=== PATIENT | male | born 1930 | race Caucasian/White ===

== ENCOUNTER → 2017-02-09 | Outpatient (CLI) | payer BC ==
[~2017-02-09] MED LIST: AMLO-110 PO; ASPI81TA28 PO; CARV25TA PO; CHOL100010 PO; DVN/160 PO; ISOS120T5 PO; LPT/40 PO; LSX40 PO; MCRK20 PO; NTRGSL/4 UT
[2017-02-09 09:37] LABS: HEMATOCRIT 41.2 % (42-52); MEAN CORPUSCULAR HEMOGLOBIN 32.3 pg (25-34); MEAN CORPUSCULAR HGB CONC 34.7 g/dl (32-36); MEAN PLATELET VOLUME 9.8 fL (7.4-10.4); PLATELET COUNT 202 K/uL (130-400); RED BLOOD COUNT 4.43 M/uL (4.7-6.1); WHITE BLOOD COUNT 6.97 K/uL (4.8-10.8)
[2017-02-09 09:57] LABS: ALT/SGPT 25 U/L (12-78); BLOOD UREA NITROGEN 21 mg/dl (7-18); BUN/CREATININE RATIO 19.2 (10-20); CARBON DIOXIDE 27 mmol/L (21-32); CHLORIDE 107 mmol/L (98-107); GLUCOSE 88 mg/dl (70-99); POTASSIUM 3.8 mmol/L (3.5-5.1); SODIUM 143 mmol/L (136-145)
[2017-02-09 10:00] LABS: ALKALINE PHOSPHATASE 103 U/L (45-117); AST/SGOT 18 U/L (15-37); CHOLESTEROL 111 mg/dl (0-200); CHOLESTEROL/HDL RATIO 2.8; HDL CHOLESTEROL 39 mg/dl; LDL CHOLESTEROL CALCULATED 47 mg/dl; TRIGLYCERIDES 127 mg/dl (0-150); VERY LOW DENSITY LIPOPROT CALC 25 mg/dl
[2017-02-09 10:05] LABS: CALCIUM 9.2 mg/dl (8.5-10.1)
== END | disposition home or self-care (01) ==
LOC: C.LAB1850 08:27
PROVIDERS: ATTEND Internal Medicine Cardiovascular Disease
DX: I25.5 Ischemic cardiomyopathy (principal); E78.5 Hyperlipidemia, unspecified; I10 Essential (primary) hypertension; I65.29 Occlusion and stenosis of unspecified carotid artery; I50.22 Chronic systolic (congestive) heart failure; I25.10 Atherosclerotic heart disease of native coronary artery without angina pectoris; R55 Syncope and collapse; R42 Dizziness and giddiness

== ENCOUNTER 2017-05-10 17:03 | Emergency (ER) | payer BC ==
[~2017-05-10] VITALS: Ht 162.6 cm; Wt 87.7 kg
[2017-05-10 17:08] VITALS: Ht 162.6 cm; Wt 87.7 kg
[2017-05-10] MEDS ORDERED: SODIUM CHLORIDE 0.9% 1000ML 1,000 ML IV STA (17:57)
--- NOTE | 2017-05-10 18:19 | DIAGNOSTIC IMAGING REPORT ---
PA CHEST WITH LEFT-SIDED RIB SERIES CLINICAL HISTORY: Left-sided chest wall pain. FINDINGS: A PA chest radiograph with 5 additional views may left-sided rib series is compared to study dated 02/15/2015. The patient is status post midline sternotomy. A 3-lead cardiac AICD partially obscures the left mid chest. The heart is enlarged and there is atherosclerotic calcification of the thoracic aorta. The pulmonary vasculature is noncongested. There is bibasilar atelectasis. The lungs and pleural spaces are otherwise clear. No pneumothorax is seen. The skeletal structures are osteopenic. There is no radiographic evidence of left-sided rib fracture on the rib series. The remainder of the bony thorax is grossly intact. IMPRESSION: 1. Cardiomegaly and AICD. There is no radiographic evidence of congestive failure. 2. No airspace consolidation or large pleural effusion is identified. 3. There is no radiographic evidence of left-sided rib fracture as clinically queried. Electronically signed by: Lazaro Miller M.D. 05/10/2017 6:18 PM Dictated Date/Time: 05/10/2017 6:11 PM
[2017-05-10 18:22] LABS: BASO % 0.6 %; BASO ABS # 0.05 K/uL (0-0.2); COMPLETE YES; EOS % 7.1 %; HEMATOCRIT 40.5 % (42-52); IG% 0.6 %; LYMPH % 23.6 %; LYMPH ABS # 2.09 K/uL (1.2-3.4); MEAN CELL VOLUME 93.5 fL (80-100); MEAN CORPUSCULAR HEMOGLOBIN 32.3 pg (25-34); MEAN CORPUSCULAR HGB CONC 34.6 g/dl (32-36); MEAN PLATELET VOLUME 9.5 fL (7.4-10.4); MONO % 7.1 %; PLATELET COUNT 196 K/uL (130-400); RED BLOOD COUNT 4.33 M/uL (4.7-6.1); WHITE BLOOD COUNT 8.84 K/uL (4.8-10.8)
[2017-05-10 18:39] LABS: ALT/SGPT 24 U/L (12-78); BLOOD UREA NITROGEN 29 mg/dl (7-18); BUN/CREATININE RATIO 17.2 (10-20); CALCIUM 8.8 mg/dl (8.5-10.1); CARBON DIOXIDE 26 mmol/L (21-32); CHLORIDE 109 mmol/L (98-107); GLUCOSE 130 mg/dl (70-99); POTASSIUM 3.8 mmol/L (3.5-5.1); SODIUM 143 mmol/L (136-145)
[2017-05-10 18:42] LABS: ALKALINE PHOSPHATASE 95 U/L (45-117); AST/SGOT 19 U/L (15-37)
[2017-05-10 19:51] LABS: URINE APPEARANCE CLEAR (CLEAR); URINE BILIRUBIN NEG (NEG); URINE COLOR YELLOW; URINE NITRITE NEG (NEG); URINE SPECIFIC GRAVITY 1.023 (1.000-1.030); UROBILINOGEN NEG (NEG)
[2017-05-10 19:52] LABS: MANUAL MICROSCOPIC REQUIRED? NO; REVIEW REQ? NO
[2017-05-10 20:12] VITALS: BP 148/59; PULSE 60; O2SAT 95
--- NOTE | 2017-05-10 20:33 | EMERGENCY ROOM VISIT NOTE ---
ED Visit Note First contact with patient: 17:14 I seen and examined the patient at bedside and discussed the case with the treating physician engineering assistant. I discussed with the patient his evaluation here , need for follow-up regarding his renal function. Examine the patient and he had equal chest rise and fall, no obvious bruising, no crepitus, no step-off, and only slight chest wall tenderness. Doubt any disruption or dislodgment of patient's pacer and/or wires. This was the patient's primary concern. No evidence of pneumothorax, twiddler's syndrome, pacer appears to be working on telemetry, doubt ACS, dissection, pulmonary contusion, cardiac contusion, traumatic dissection.
--- NOTE | 2017-05-11 22:22 | EMERGENCY ROOM VISIT NOTE ---
ED Visit Note First contact with patient: 17:14 Chief Complaint: Left sided rib pain. History of Present Illness: Mr. Gambino is an 87-year-old white male who ambulates into the ED accompanied by his complaining of left anterior rib pain. Historically patient reports he has coronary artery disease and is status post pacer/defibrillator insertion. Patient reports last few days he's been feeling well. Today he reports he was out working on his tractor. When he finished he reports he was feeling tired and fatigued. As he was coming down off the tractor he slipped and fell onto his left elbow. He reports this caused the left elbow to be driven into the left side of his chest in the area of his pacer/defibrillator. Since that time he reports he has been having pain in the area of his pacer/defibrillator. Patient denies lightheadedness or dizziness before the fall, striking his head at the time of the fall, signs of head injury since the fall including headache , dizziness, lightheadedness, abnormal neurological symptoms, nausea/vomiting. Patient currently places his discomfort over the left anterior ribs posterior to his pacer/defibrillator. He describes his pain as a sharp discomfort. He rates his discomfort 8/10. The pain is nonradiating. The pain worsens with palpation. He has not identified any alleviating factors related to the pain. He has not taken any medications for pain prior to arrival at the hospital. He denies any associated skin eruptions, skin color changes, fevers, chills, sweats , cough, wheezing, shortness of breath, palpitations, abdominal pain, nausea/ vomiting, back pain. Review of Systems: As noted above in history of present illness. All body systems were reviewed and found to be negative as noted above. Past Medical History: As previously noted and asthma, hypertension, congestive heart failure, dyslipidemia, syncope. Current Medications: Medications Dose Route/Sig Max Daily Dose Days Date Category Dose Instructions Vitamin D (Cholecalciferol) 1,000 Inter.unit Tab 2,000 Inter.unit PO QAM 12/24/15 Reported Diovan (Valsartan) 160 Mg Tab 160 Mg PO BID 12/24/15 Reported Lipitor (Atorvastatin) 40 Mg Tab 40 Mg PO HS 12/24/15 Reported Aspirin Ec (Aspirin) 81 Mg Tab 81 Mg PO QAM 02/15/15 Reported Furosemide 40 Mg Tab 80 Mg PO QAM 09/11/14 Reported Imdur Ext Rel (Isosorbide Mononitrate) 120 Mg Tab 120 Mg PO BID 02/25/13 Reported Nitrostat (Nitroglycerin) 0.4 Mg Tab 0.4 Mg UT UD PRN 12/12/[address] ONE TABLET UNDER THE TONGUE EVERY 5 MINUTES FOR UP TO 3 DOSES IF NEEDED FOR CHEST PAIN. Coreg (Carvedilol) 25 Mg Tab 25 Mg PO BID 12/12/12 Reported Klor-Con (Potassium Chloride) 20 Meq Tabcr 20 Meq PO QAM 12/12/12 Reported Allergies to Medications: ESHA inhibitor's. Social History: Patient is currently retired; he feels safe in his home environment; he denies tobacco use. Physical Examination: Vital Signs: Date Time Temp Pulse Resp B/P (MAP) Pulse Ox O2 Delivery O2 Flow Rate FiO2 05/10/17 20:12 60 19 148/59 95 05/10/17 19:03 60 17 130/64 94 Room Air 05/10/17 18:19 60 16 134/60 95 Room Air 05/10/17 17:08 36.4 60 20 158/58 95 Room Air GENERAL: 87-year-old male in mild distress due to pain, nontoxic-appearing, afebrile and hemodynamically stable. NEUROLOGICAL: Awake, alert and oriented to person, place and time. Answering questions appropriately and following commands. Normal gait. Good hand eye coordination. No focal motor sensory deficits. SKIN: Warm, dry and pink. No soft tissue eruptions or trauma noted. HEENT: Atraumatic and normocephalic. PERRLA. Sclera white and conjunctiva pink. No drainage from naris. Oral cavity moist and pink. Pharynx is nonerythematous or edematous. Speech normal. No lymphadenopathy. Trachea midline. No jugular venous distention. No carotid bruits. BACK: No tenderness over the bony cervical, thoracic and lumbar spine. No tenderness throughout the paraspinous muscles. Full range of motion of the cervical spine. No CVA tenderness. THORAX: Lungs sounds are clear to auscultation and equal bilaterally with symmetrical chest wall. No wheezing, rales or rhonchi. Mild tenderness over the right anterior chest wall in the area of his pacer/defibrillator. Was not able to elicit any bony deformity, bony crepitus, swelling, ecchymosis or subcutaneous air. HEART: Regular rate and rhythm. No gallops, rubs or murmurs are appreciated. ABDOMEN: Flat, soft and nontender. Positive bowel sounds in all quadrants. No guarding, rigidity or organomegaly. EXTREMITIES: Moves all extremities well on command and with purpose. All distal neurovascular statuses are intact and equal bilaterally. No calf tenderness or cords. ED Course: Patient is assessed as noted above. Patient's medication list was reviewed. Laboratory Testing: Test 05/10/17 18:05 05/10/17 19:40 Range/Units White Blood Count 8.84 4.8-10.8 K/uL Red Blood Count 4.33 4.7-6.1 M/uL Hemoglobin 14.0 14.0-18.0 g/dL Hematocrit 40.5 42-52 % Mean Corpuscular Volume 93.5 80-100 fL Mean Corpuscular Hemoglobin 32.3 25-34 pg Mean Corpuscular Hemoglobin Concent 34.6 32-36 g/dl Platelet Count 196 130-400 K/uL Mean Platelet Volume 9.5 7.4-10.4 fL Neutrophils (%) (Auto) 61.0 % Lymphocytes (%) (Auto) 23.6 % Monocytes (%) (Auto) 7.1 % Eosinophils (%) (Auto) 7.1 % Basophils (%) (Auto) 0.6 % Neutrophils # (Auto) 5.39 1.4-6.5 K/uL Lymphocytes # (Auto) 2.09 1.2-3.4 K/uL Monocytes # (Auto) 0.63 0.11-0.59 K/uL Eosinophils # (Auto) 0.63 0-0.5 K/uL Basophils # (Auto) 0.05 0-0.2 K/uL RDW Standard Deviation 46.4 36.4-46.3 fL RDW Coefficient of Variation 13.5 11.5-14.5 % Immature Granulocyte % (Auto) 0.6 % Immature Granulocyte # (Auto) 0.05 0.00-0.02 K/uL Sodium Level 143 136-145 mmol/L Potassium Level 3.8 3.5-5.1 mmol/L Chloride Level 109 98-107 mmol/L Carbon Dioxide Level 26 21-32 mmol/L Anion Gap 8.0 3-11 mmol/L Blood Urea Nitrogen 29 7-18 mg/dl Creatinine 1.70 0.60-1.40 mg/dl Est Creatinine Clear Calc Drug Dose 30.6 ml/min Estimated GFR () 41.1 Estimated GFR (Non- 35.5 BUN/Creatinine Ratio 17.2 10-20 Random Glucose 130 70-99 mg/dl Calcium Level 8.8 8.5-10.1 mg/dl Total Bilirubin 0.7 0.2-1 mg/dl Direct Bilirubin 0.1 0-0.2 mg/dl Aspartate Amino Transf (AST/SGOT) 19 15-37 U/L Alanine Aminotransferase (ALT/SGPT) 24 12-78 U/L Alkaline Phosphatase 95 45-117 U/L Troponin I < 0.015 0-0.045 ng/ml Total Protein 6.5 6.4-8.2 gm/dl Albumin 3.4 3.4-5.0 gm/dl Lipase 120 73-393 U/L Urine Color YELLOW Urine Appearance CLEAR CLEAR Urine pH 5.0 4.5-7.5 Urine Specific [place] 1.023 1.000-1.030 Urine Protein NEG NEG Urine Glucose (UA) NEG NEG Urine Ketones NEG NEG Urine Occult Blood NEG NEG Urine Nitrite NEG NEG Urine Bilirubin NEG NEG Urine Urobilinogen NEG NEG Urine Leukocyte Esterase NEG NEG Chest X-Ray: Was reviewed by myself and read by the radiologist and shows cardiomegaly and AICD. No evidence of congestive failure. No airspace consolidation or large pleural effusions. No radiographic evidence of rib fracture. EKG: Was read by myself and reviewed with Dr. Camara; shows an atrial sensed ventricular paced rhythm at a rate of 64 bpm. No ischemic changes. This was compared to previous and no acute changes were noted. Patient was hydrated with normal saline; he was offered pain medications and refused. Patient was reassessed multiple times during his stay in the emergency department. Patient's case was reviewed with Dr. Camara; she is apparently assessed the patient we agreed on diagnostic approach, treatment, disposition and plan. Patient and are educated about today's findings and instructed on history of a plan; they verbalized understanding and agreement with this plan. Clinical Impression: Anterior left sided rib pain. Elevated BUN and creatinine. Decision-Making: Initially my differential diagnosis I considered rib fracture, pneumothorax, acute coronary syndrome, pulmonary contusion, displacement of pacer/defibrillator, arrhythmia and other causes. Disposition: Patient discharged home in stable condition; prior to departure he was reassessed and subjectively reported he was feeling better and rated his discomfort 5/10. Plan: Patient was encouraged to continue current medications as prescribed. Patient was encouraged to rest for next 2 or 3 days and do no strenuous activities. Patient was encouraged use 650 mg of acetaminophen every 6 hours as needed for pain. Patient was encouraged use ice over areas of pain 5 times a day for 20 minutes. Patient was encouraged to contact his family physician in the morning and request follow-up care and treatment and recheck of his BUN and creatinine levels. Patient was encouraged return ED for worsening pain, shortness of breath, fevers or any new/concerning symptoms.
== END 2017-05-10 20:14 | disposition home or self-care (01) ==
LOC: C.EDB 17:04 → C.EDD 20:14
DX: R07.81 Pleurodynia (principal); R79.89 Other specified abnormal findings of blood chemistry; I25.10 Atherosclerotic heart disease of native coronary artery without angina pectoris; Z95.810 Presence of automatic (implantable) cardiac defibrillator; I10 Essential (primary) hypertension; E78.5 Hyperlipidemia, unspecified; J45.909 Unspecified asthma, uncomplicated; Z79.82 Long term (current) use of aspirin; Z79.899 Other long term (current) drug therapy

== ENCOUNTER → 2017-06-28 | Outpatient (CLI) | payer BC ==
[~2017-06-28] MED LIST changes: -AMLO-110 PO
[2017-06-28 13:51] LABS: BLOOD UREA NITROGEN 17 mg/dl (7-18); BUN/CREATININE RATIO 14.3 (10-20); CALCIUM 9.1 mg/dl (8.5-10.1); CARBON DIOXIDE 28 mmol/L (21-32); CHLORIDE 109 mmol/L (98-107); GLUCOSE 117 mg/dl (70-99); POTASSIUM 3.4 mmol/L (3.5-5.1); SODIUM 143 mmol/L (136-145)
== END | disposition home or self-care (01) ==
LOC: C.LAB1850 11:57
PROVIDERS: ATTEND Internal Medicine
DX: N18.3 Chronic kidney disease, stage 3 (moderate) (principal)

== ENCOUNTER → 2017-07-01 | Outpatient (CLI) | payer BC | END | disposition home or self-care (01) | LOC: C.LAB1850 14:20 | PROVIDERS: ATTEND Internal Medicine Cardiovascular Disease | DX: I20.9 Angina pectoris, unspecified (principal); I50.22 Chronic systolic (congestive) heart failure; I25.10 Atherosclerotic heart disease of native coronary artery without angina pectoris ==

== ENCOUNTER → 2017-07-23 | Outpatient (CLI) | payer BC ==
[2017-07-23 15:28] LABS: HEMATOCRIT 40.6 % (42-52); MEAN CELL VOLUME 93.5 fL (80-100); MEAN CORPUSCULAR HEMOGLOBIN 32.5 pg (25-34); MEAN CORPUSCULAR HGB CONC 34.7 g/dl (32-36); PLATELET COUNT 230 K/uL (130-400); RED BLOOD COUNT 4.34 M/uL (4.7-6.1)
[2017-07-23 16:02] LABS: ALT/SGPT 24 U/L (12-78); AST/SGOT 18 U/L (15-37); BLOOD UREA NITROGEN 24 mg/dl (7-18); BUN/CREATININE RATIO 19.7 (10-20); CALCIUM 8.7 mg/dl (8.5-10.1); CARBON DIOXIDE 26 mmol/L (21-32); CHLORIDE 108 mmol/L (98-107); POTASSIUM 3.8 mmol/L (3.5-5.1); SODIUM 142 mmol/L (136-145)
[2017-07-23 16:13] LABS: GLUCOSE 92 mg/dl (70-99)
== END | disposition home or self-care (01) ==
LOC: C.LAB1850 14:07
PROVIDERS: ATTEND Internal Medicine Cardiovascular Disease
DX: I25.5 Ischemic cardiomyopathy (principal); E78.5 Hyperlipidemia, unspecified; I11.0 Hypertensive heart disease with heart failure; I50.22 Chronic systolic (congestive) heart failure; I25.10 Atherosclerotic heart disease of native coronary artery without angina pectoris; R55 Syncope and collapse

== ENCOUNTER → 2017-08-23 | Outpatient (CLI) | payer BC ==
[2017-08-23 12:22] LABS: BLOOD UREA NITROGEN 28 mg/dl (7-18); CALCIUM 8.8 mg/dl (8.5-10.1); CARBON DIOXIDE 24 mmol/L (21-32); CHLORIDE 108 mmol/L (98-107); CREATININE 1.39 mg/dl (0.60-1.40); GLUCOSE 97 mg/dl (70-99); POTASSIUM 4.4 mmol/L (3.5-5.1); SODIUM 139 mmol/L (136-145)
== END | disposition home or self-care (01) ==
LOC: C.LAB1850 10:30
PROVIDERS: ATTEND Internal Medicine Cardiovascular Disease
DX: N18.3 Chronic kidney disease, stage 3 (moderate) (principal)

== ENCOUNTER → 2017-09-06 | Outpatient (CLI) | payer BC ==
[2017-09-06 16:49] LABS: HEMATOCRIT 38.4 % (42-52); MEAN CELL VOLUME 94.3 fL (80-100); MEAN CORPUSCULAR HEMOGLOBIN 32.4 pg (25-34); MEAN CORPUSCULAR HGB CONC 34.4 g/dl (32-36); MEAN PLATELET VOLUME 10.3 fL (7.4-10.4); PLATELET COUNT 237 K/uL (130-400); RED BLOOD COUNT 4.07 M/uL (4.7-6.1); WHITE BLOOD COUNT 9.35 K/uL (4.8-10.8)
== END | disposition home or self-care (01) ==
LOC: C.LAB1850 15:02
PROVIDERS: ATTEND Internal Medicine Cardiovascular Disease
DX: I11.0 Hypertensive heart disease with heart failure (principal); I25.119 Atherosclerotic heart disease of native coronary artery with unspecified angina pectoris; I50.22 Chronic systolic (congestive) heart failure

== ENCOUNTER 2017-10-14 08:37 | Emergency (ER) | payer BC ==
[~2017-10-14] VITALS: Ht 162.6 cm; Wt 89.4 kg
[~2017-10-14 08:37] MED LIST changes: -ASPI81TA28 PO; -CARV25TA PO; -DVN/160 PO; -ISOS120T5 PO; -LPT/40 PO; -NTRGSL/4 UT
[2017-10-14 08:55] VITALS: TEMP 36.5; O2SAT 95; Ht 162.6 cm; Wt 89.4 kg
--- NOTE | 2017-10-14 10:01 | EMERGENCY ROOM VISIT NOTE ---
History Report prepared by Timmy: Greg Ureña Under the Supervision of: Dr. Jose L Mcdonald M.D. First contact with patient: 09:54 Chief Complaint: CARDIAC ASSESSMENT Stated Complaint: HEART DEVICE WENT OFF 3 TIMES LAST EVENING Nursing Triage Summary: pt reports last night pacer/defib went off 4-5 x. said he was up all night jerking. pt denies any pain or sob. has fallen a couple times between last night and today. pt has hx of bypass surgery x2 , stent in bilat legs, pacer /defib, poor ejection fraction, pt reports last night when fell he hit top of head into door has neck and head pain. no loc History of Present Illness The patient is an 87 year old male with a pacemaker who presents to the Emergency Room with complaints of episodes of defibrillator/pacemaker shocking that started last night. He states that his defibrillator went off 4 or 5 times overnight. Per the patient's , the patient was "jerking" all night long. The patient says that his defibrillator had went off once before these recent episodes. He denies any pain, including abdominal pain. He also denies any shortness of breath or urinary symptoms. His last bowel movement was a few days ago. The patient notes that he had bypass surgery in 2003, and then a stent placement, followed with the pacemaker implantation. He adds that he takes fluid medication. Source of History: patient, spouse/significant other Onset: Last night Position: other (heart ) Symptom Intensity: 4 or 5 times Quality: other (defibrillator shocking) Timing: other (episodes) Associated Symptoms: No SOB, No abdominal pain, No urinary symptoms Note: Associated symptoms: Patient "jerking" all night. Denies any pain. Review of Systems All systems have been listed, reviewed, and are negative other than those previously mentioned. Please see Additional Medical History Sheet. Past Medical & Surgical Medical Problems: (1) Asthma (2) Asthma, Unspecified (3) Benign hypertension (4) Congestive Heart Failure Nos (5) Coronary Atherosclerosis Of [place] Coronary Vessel (6) Heart disease (7) Hyperlipidemia Nec/Nos (8) Syncope Surgical Problems: (1) Implantation of cardiac pacemaker Family History Cancer Diabetes mellitus FH: heart disease Social History Smoking Status: Never Smoker Alcohol Use: none Marital Status: Housing Status: lives with significant other Occupation Status: retired Current/Historical Medications Scheduled Aspirin (Aspirin Ec), 81 MG PO QAM Atorvastatin (Lipitor), 40 MG PO HS Carvedilol (Coreg), 25 MG PO BID Cholecalciferol (Vitamin D3), 2,000 UNITS PO DAILY Furosemide (Furosemide), 80 MG PO QAM Isosorbide Mononitrate (Imdur Ext Rel), 120 MG PO BID Potassium Chloride (Klor-Con M20), 20 MEQ PO DAILY Valsartan (Diovan), 160 MG PO BID Scheduled PRN Nitroglycerin (Nitrostat), 0.4 MG UT UD PRN for Chest Pain Allergies Coded Allergies: ESHA Inhibitors (Verified Adverse Reaction, Mild, COUGH, 05/10/17) Physical Exam Vital Signs Date Time Temp Pulse Resp B/P (MAP) Pulse Ox O2 Delivery O2 Flow Rate FiO2 10/14/17 12:45 163/83 10/14/17 12:42 60 18 10/14/17 12:36 60 10/14/17 12:30 165/83 10/14/17 12:15 158/77 10/14/17 12:12 60 17 95 10/14/17 12:07 60 20 94 10/14/17 12:01 144/119 10/14/17 11:45 161/81 10/14/17 11:37 60 17 95 10/14/17 11:30 160/75 10/14/17 11:15 152/74 10/14/17 11:07 60 17 95 10/14/17 11:00 156/71 10/14/17 10:45 136/74 10/14/17 10:37 60 17 95 10/14/17 10:30 151/88 10/14/17 10:15 165/75 10/14/17 10:08 60 20 146/72 97 Room Air 10/14/17 10:07 60 17 94 10/14/17 10:00 146/72 10/14/17 09:45 119/76 10/14/17 09:37 60 16 10/14/17 09:32 130/57 10/14/17 09:16 116/61 10/14/17 09:07 60 15 10/14/17 09:00 120/55 10/14/17 08:55 36.5 60 20 142/64 95 Room Air 10/14/17 08:55 95 Room Air 10/14/17 08:55 95 Room Air 10/14/17 08:52 60 10/14/17 08:51 142/64 Physical Exam GENERAL: Patient awake, alert, oriented x 3. Patient follows commands. Patient does not appear toxic. Patient is adequately hydrated and well- nourished. SKIN: There is a midline sternotomy scar. No erythema, pallor, cyanosis or rash. HEENT: Normal head, pupils equal, reactive to light and accommodation. LUNGS: Clear to auscultation. No wheezes, no rales, no rhonchi. HEART: No murmurs. No gallops. No rubs ABDOMEN: No masses, no rebound, no hepatomegaly or splenomegaly. EXTREMITIES: No signs of trauma. No pedal or pretibial edema. No calf or thigh tenderness. NEUROLOGIC: Cranial nerves II-XII within normal limits. No gross motor sensory function deficits. Medical Decision & Procedures ER Provider Diagnostic Interpretation: X ray results are stated below per my interpretation and the radiologist's interpretation. CHEST ONE VIEW PORTABLE CLINICAL HISTORY: defib fired cardiac arrhythmia COMPARISON STUDY: 02/15/2015 FINDINGS: Stable cardiomegaly. Prior median sternotomy. Implantable cardiac pacemaker/defibrillator with leads in good position. Diaphragms are smooth. Lungs are clear. IMPRESSION: Chronic and postoperative change. No acute process. Cardiac pacemaker/defibrillator leads appear intact. The above report was generated using voice recognition software. It may contain grammatical, syntax or spelling errors. Electronically signed by: Clovis Dorsey M.D. 10/14/2017 10:25 AM Dictated Date/Time: 10/14/2017 10:24 AM Laboratory Results 10/14/17 09:05 10/14/17 09:05 Test 10/14/17 09:05 10/14/17 10:20 Red Blood Count 3.93 M/uL (4.7-6.1) Mean Corpuscular Volume 94.7 fL (80-100) Mean Corpuscular Hemoglobin 33.1 pg (25-34) Mean Corpuscular Hemoglobin Concent 34.9 g/dl (32-36) RDW Standard Deviation 48.1 fL (36.4-46.3) RDW Coefficient of Variation 13.8 % (11.5-14.5) Mean Platelet Volume 9.9 fL (7.4-10.4) Prothrombin Time 11.8 SECONDS (9.0-12.0) Prothromb Time International Ratio 1.1 (0.9-1.1) Activated Partial Thromboplast Time 28.7 SECONDS (21.0-31.0) Partial Thromboplastin Ratio 1.1 Anion Gap 5.0 mmol/L (3-11) Est Creatinine Clear Calc Drug Dose 33.2 ml/min Estimated GFR () 44.9 Estimated GFR (Non- 38.8 BUN/Creatinine Ratio 13.1 (10-20) Calcium Level 8.5 mg/dl (8.5-10.1) Total Bilirubin 0.7 mg/dl (0.2-1) Aspartate Amino Transf (AST/SGOT) 12 U/L (15-37) Alanine Aminotransferase (ALT/SGPT) 18 U/L (12-78) Alkaline Phosphatase 104 U/L (45-117) Troponin I < 0.015 ng/ml (0-0.045) Total Protein 6.3 gm/dl (6.4-8.2) Albumin 3.0 gm/dl (3.4-5.0) Globulin 3.3 gm/dl (2.5-4.0) Albumin/Globulin Ratio 0.9 (0.9-2) Thyroid Stimulating Hormone (TSH) 1.080 uIu/ml (0.300-4.500) Urine Color DK YELLOW Urine Appearance CLEAR (CLEAR) Urine pH 6.5 (4.5-7.5) Urine Specific [place] 1.022 (1.000-1.030) Urine Protein NEG (NEG) Urine Glucose (UA) NEG (NEG) Urine Ketones NEG (NEG) Urine Occult Blood NEG (NEG) Urine Nitrite NEG (NEG) Urine Bilirubin NEG (NEG) Urine Urobilinogen NEG (NEG) Urine Leukocyte Esterase TRACE (NEG) Urine WBC (Auto) 1-5 /hpf (0-5) Urine RBC (Auto) 0-4 /hpf (0-4) Urine Hyaline Casts (Auto) 0 /lpf (0-5) Urine Epithelial Cells (Auto) 5-10 /lpf (0-5) Urine Bacteria (Auto) NEG (NEG) Laboratory results as stated above per my review. ECG Indication: palpitations Rate (beats per minute): 61 Rhythm: other (biventricular paced rhythm) Findings: no acute ischemic change, no ectopy ED Course 0955: Past medical records reviewed. The patient was evaluated in room B12B. A complete history and physical examination was performed. 1320: Upon reevaluation, the patient appeared to be resting comfortably. I discussed today's findings with him. He verbalized agreement of the treatment plan. He was discharged home. Medical Decision I considered multiple diagnoses including multiple firing of defibrillator, arrhythmia, metabolic disorder, thyroid disorder. Multiple labs, EKG and imaging were obtained. Please see above. The patient's troponin is not elevated. He remains in a paced rhythm. He has no acute findings. Chest x-ray is unremarkable. The patient's defibrillator was interrogated and there were no shocks administered. I discussed this with the patient and his . The patient has had some ambulatory dysfunction for about 1 month. He fell again today. 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 No medication changes are necessary at this time. Medication Reconcilliation Current Medication List: was personally reviewed by me Blood Pressure Screening Patient's blood pressure: Elevated blood pressure Blood pressure disposition: Referred to PCP Impression Primary Impression: Encounter for interrogation of cardiac defibrillator Scribe Attestation The scribe's documentation has been prepared under my direction and personally reviewed by me in its entirety. I confirm that the note above accurately reflects all work, treatment, procedures, and medical decision making performed by me. Departure Information Dispostion Home / Self-Care Referrals Sukhi Burrell M.D. (PCP) Patient Instructions My [facility] Additional Instructions Continue all of your current medications as prescribed. Follow-up with your family physician and plumbing and heating contractor.
[2017-10-14 10:26] LABS: HEMATOCRIT 37.2 % (42-52); MEAN CELL VOLUME 94.7 fL (80-100); MEAN CORPUSCULAR HEMOGLOBIN 33.1 pg (25-34); MEAN CORPUSCULAR HGB CONC 34.9 g/dl (32-36); MEAN PLATELET VOLUME 9.9 fL (7.4-10.4); PLATELET COUNT 248 K/uL (130-400); RED CELL DISTRIBUTION WIDTH CV 13.8 % (11.5-14.5); RED CELL DISTRIBUTION WIDTH SD 48.1 fL (36.4-46.3); WHITE BLOOD COUNT 7.02 K/uL (4.8-10.8)
--- NOTE | 2017-10-14 10:27 | DIAGNOSTIC IMAGING REPORT ---
CHEST ONE VIEW PORTABLE CLINICAL HISTORY: defib fired cardiac arrhythmia COMPARISON STUDY: 02/15/2015 FINDINGS: Stable cardiomegaly. Prior median sternotomy. Implantable cardiac pacemaker/defibrillator with leads in good position. Diaphragms are smooth. Lungs are clear. IMPRESSION: Chronic and postoperative change. No acute process. Cardiac pacemaker/defibrillator leads appear intact. The above report was generated using voice recognition software. It may contain grammatical, syntax or spelling errors. Electronically signed by: Clovis Dorsey M.D. 10/14/2017 10:25 AM Dictated Date/Time: 10/14/2017 10:24 AM
[2017-10-14 10:34] LABS: INR 1.1 (0.9-1.1); PTT PATIENT 28.7 SECONDS (21.0-31.0)
[2017-10-14 10:37] LABS: ALT/SGPT 18 U/L (12-78); AST/SGOT 12 U/L (15-37); BLOOD UREA NITROGEN 21 mg/dl (7-18); CALCIUM 8.5 mg/dl (8.5-10.1); CARBON DIOXIDE 26 mmol/L (21-32); CREATININE 1.58 mg/dl (0.60-1.40); GLUCOSE 102 mg/dl (70-99); POTASSIUM 3.7 mmol/L (3.5-5.1); SODIUM 138 mmol/L (136-145)
[2017-10-14 10:48] LABS: ALKALINE PHOSPHATASE 104 U/L (45-117); TOTAL PROTEIN 6.3 gm/dl (6.4-8.2)
[2017-10-14 12:12] VITALS: O2SAT 95
[2017-10-14 12:42] VITALS: PULSE 60
[2017-10-14 12:45] VITALS: BP 163/83
[2018-04-10] MEDS ORDERED: PANT40TA PO (14:42)
[2018-05-10] MEDS ORDERED: ISOS120T5 PO (08:59)
[2018-05-10] MEDS ORDERED: MCRK20 PO (09:00)
[2018-05-10] MEDS ORDERED: CHOL20007 PO (09:00)
[2018-05-10] MEDS ORDERED: DVN/160 PO (10:50)
[2018-05-10] MEDS ORDERED: LPT/40 PO (10:50)
[2018-05-26] MEDS ORDERED: POTA-639 PO (15:10)
[2018-05-26] MEDS ORDERED: FERR1TAB62 PO (15:18)
== END 2017-10-14 13:15 | disposition home or self-care (01) ==
LOC: C.EDB 08:38
DX: Z45.02 Encounter for adjustment and management of automatic implantable cardiac defibrillator (principal); I10 Essential (primary) hypertension; E78.5 Hyperlipidemia, unspecified; I25.10 Atherosclerotic heart disease of native coronary artery without angina pectoris; I51.9 Heart disease, unspecified; J45.909 Unspecified asthma, uncomplicated; Z95.0 Presence of cardiac pacemaker; Z79.82 Long term (current) use of aspirin; Z79.899 Other long term (current) drug therapy; Z88.8 Allergy status to other drugs, medicaments and biological substances; Z80.9 Family history of malignant neoplasm, unspecified; Z83.3 Family history of diabetes mellitus; Z82.49 Family history of ischemic heart disease and other diseases of the circulatory system

== ENCOUNTER → 2018-05-05 | Outpatient (CLI) | payer OTHER ==
[~2018-05-05] MED LIST changes: +ASPI81TA28 PO; +CARV25TA PO; -CHOL100010 PO; +CHOL20007 PO; +DVN/160 PO; +ISOS120T5 PO; +LPT/40 PO; +LSX80 PO; +LVQ750 PO; +NTRGSL/4 UT; +PANT40TA PO; +PANT40TA2 PO; +TRAM-10 PO
[2018-05-05 13:31] LABS: HEMATOCRIT 34.2 % (42-52); HEMOGLOBIN 10.8 g/dL (14.0-18.0); MEAN CELL VOLUME 97.2 fL (80-100); MEAN CORPUSCULAR HEMOGLOBIN 30.7 pg (25-34); MEAN CORPUSCULAR HGB CONC 31.6 g/dl (32-36); MEAN PLATELET VOLUME 9.7 fL (7.4-10.4); PLATELET COUNT 270 K/uL (130-400); RED CELL DISTRIBUTION WIDTH SD 49.5 fL (36.4-46.3); WHITE BLOOD COUNT 7.48 K/uL (4.8-10.8)
[2018-05-05 14:17] LABS: ALT/SGPT 16 U/L (12-78); AST/SGOT 12 U/L (15-37); BLOOD UREA NITROGEN 18 mg/dl (7-18); CALCIUM 8.1 mg/dl (8.5-10.1); CARBON DIOXIDE 26 mmol/L (21-32); CHOLESTEROL 96 mg/dl (0-200); CREATININE 1.27 mg/dl (0.60-1.40); GLUCOSE 86 mg/dl (70-99); LDL CHOLESTEROL CALCULATED 38 mg/dl; POTASSIUM 3.8 mmol/L (3.5-5.1); SODIUM 141 mmol/L (136-145)
== END | disposition home or self-care (01) ==
LOC: C.LABPBG 07:36
PROVIDERS: ATTEND Internal Medicine Cardiovascular Disease
DX: I50.22 Chronic systolic (congestive) heart failure (principal); I25.5 Ischemic cardiomyopathy; K92.2 Gastrointestinal hemorrhage, unspecified; Z95.810 Presence of automatic (implantable) cardiac defibrillator; E78.5 Hyperlipidemia, unspecified; I11.0 Hypertensive heart disease with heart failure; I20.9 Angina pectoris, unspecified; R55 Syncope and collapse

== ENCOUNTER 2018-05-10 17:22 | Inpatient (IN) | payer OTHER ==
[~2018-05-10] VITALS: Ht 165.1 cm; Wt 86.7 kg
[~2018-05-10 17:22] MED LIST changes: -ASPI81TA28 PO; -CARV25TA PO; -LSX80 PO; -LVQ750 PO; -NTRGSL/4 UT; -PANT40TA2 PO; -TRAM-10 PO
[2018-05-10] MEDS ORDERED: ALBUT/IPRATROP 3MG/0.5MG NEB 3 ML VIAL INH STA (17:29)
[2018-05-10] MEDS ORDERED: OPTIRAY 320 IV PRN (17:30)
[2018-05-10] MEDS ORDERED: ASPIRIN 81 MG CHEW PO STA (17:30)
[2018-05-10 17:33] VITALS: PULSE 93; O2SAT 91
[2018-05-10 17:41] LABS: BASO % 0.5 %; BASO ABS # 0.04 K/uL (0-0.2); EOS % 1.9 %; EOS ABS # 0.14 K/uL (0-0.5); HEMATOCRIT 35.4 % (42-52); HEMOGLOBIN 11.4 g/dL (14.0-18.0); IG# 0.02 K/uL (0.00-0.02); LYMPH % 19.9 %; LYMPH ABS # 1.46 K/uL (1.2-3.4); MEAN CELL VOLUME 96.2 fL (80-100); MEAN CORPUSCULAR HGB CONC 32.2 g/dl (32-36); MEAN PLATELET VOLUME 9.7 fL (7.4-10.4); MONO % 3.1 %; MONO ABS # 0.23 K/uL (0.11-0.59); NEUT % 74.3 %; NEUT ABS # 5.45 K/uL (1.4-6.5); PLATELET COUNT 339 K/uL (130-400); RED CELL DISTRIBUTION WIDTH CV 13.7 % (11.5-14.5); RED CELL DISTRIBUTION WIDTH SD 47.6 fL (36.4-46.3); WHITE BLOOD COUNT 7.34 K/uL (4.8-10.8)
--- NOTE | 2018-05-10 17:42 | DIAGNOSTIC IMAGING REPORT ---
CHEST ONE VIEW PORTABLE HISTORY: 88 years-old Male Chest Pain acute atypical chest pain with respiratory distress COMPARISON: Chest radiograph 04/08/2018 TECHNIQUE: Portable AP view of the chest FINDINGS: Cardiac silhouette is enlarged, unchanged. Left subclavian pacer/ICD redemonstrated with leads appearing to be intact. Prior median sternotomy. Calcification of the aorta. No pneumothorax, pleural effusion or overt pulmonary edema. There is mild pulmonary vascular congestion. Subsegmental left basilar opacities suggest atelectasis. Ill-defined alveolar opacities about the left upper lobe. Degenerative changes of the shoulders and spine. IMPRESSION: 1. Cardiomegaly with mild pulmonary vascular congestion. 2. Ill-defined opacities of the left upper lobe suggest pneumonia or atelectasis. The above report was generated using voice recognition software. It may contain grammatical, syntax or spelling errors. Electronically signed by: Randy Moreau M.D. 05/10/2018 5:40 PM Dictated Date/Time: 05/10/2018 5:38 PM
--- NOTE | 2018-05-10 17:54 | DIAGNOSTIC IMAGING REPORT ---
(CHEST FOR PE) ANGIO WITH CT DOSE: 455.84 mGy.cm HISTORY: Chest pain dyspnea TECHNIQUE: Multiaxial CT images of the chest were performed following the intravenous administration of contrast to evaluate the pulmonary arteries. Maximal intensity projection images were also obtained. A dose lowering technique was utilized adhering to the principles of ALARA. COMPARISON STUDY: None. FINDINGS: Moderate atelectatic change thoracic aorta. Pulmonary vasculature enhances appropriately. No filling defects. There is diffuse left hemithoracic infiltrate. This involves left upper as well as left lower lobe regions. Right lung is grossly clear. Moderate cardiomegaly. IMPRESSION: 1. Study is negative for pulmonary embolus. 2. Diffuse parenchymal infiltrate left hemithorax. The above report was generated using voice recognition software. It may contain grammatical, syntax or spelling errors. Electronically signed by: Clovis Dorsey M.D. 05/10/2018 5:52 PM Dictated Date/Time: 05/10/2018 5:49 PM
[2018-05-10] MEDS ORDERED: PIPERACILLIN/TAZOBACTAM 4.5 GM/100ML D5W IV STA (18:03)
[2018-05-10] MEDS ORDERED: LEVAQUIN 750MG / 150ML D5W IV STA (18:03)
[2018-05-10 18:16] LABS: ALBUMIN 3.2 gm/dl (3.4-5.0); ALKALINE PHOSPHATASE 124 U/L (45-117); ALT/SGPT 19 U/L (12-78); AST/SGOT 17 U/L (15-37); BLOOD UREA NITROGEN 19 mg/dl (7-18); CALCIUM 8.6 mg/dl (8.5-10.1); CARBON DIOXIDE 24 mmol/L (21-32); CKMB 2.1 ng/ml (0.5-3.6); CREATININE 1.52 mg/dl (0.60-1.40); GLUCOSE 157 mg/dl (70-99); LIPASE 70 U/L (73-393); TOTAL PROTEIN 6.8 gm/dl (6.4-8.2)
[2018-05-10 18:17] LABS: POTASSIUM 4.4 mmol/L (3.5-5.1); SODIUM 139 mmol/L (136-145)
[2018-05-10] MEDS ORDERED: PANT40TA2 PO (18:33)
[2018-05-10] MEDS ORDERED: LSX80 PO (18:33)
[2018-05-10] MEDS ORDERED: TRAM-10 PO (18:34)
--- NOTE | 2018-05-10 18:42 | History and Physical ---
History & Physical Date & Time of Service: May 10, 2018 at 18:29 Chief Complaint: Resp. Distress Primary Care Physician: Sukhi Burrell M.D. History of Present Illness Source: patient, family, hospital records 88y/oM with hx of CAD, PAD, systolic CHF EF 55% (2012), CKD III, HTN, HLD presents with chills, shaking and cough since this afternoon. Cough is dry. A/w sob. Denies feeling feverish, chest pain, abdominal pain, n/v, constipation, diarrhea, NAPIER/dizziness. Yesterday L ankle and foot swollen and has history of PAD with stents. L leg swelling has improved but still there. Did not take any medications at home aside from regular medication regimen No known sick contacts. Never smoked and denies any hx of asthma ED interval hx: received Zosyn, levoquin, aspirin and duoneb x 1 with improvement in sob Past Medical/Surgical History Medical Problems: (1) Asthma (2) Asthma, Unspecified (3) Benign hypertension (4) Chest pain (5) Congestive Heart Failure Nos (6) Coronary Atherosclerosis Of [place] Coronary Vessel (7) Encounter for interrogation of cardiac defibrillator (8) Heart disease (9) Hyperlipidemia Nec/Nos (10) Left sided chest pain (11) Lightheadedness (12) PAD (peripheral artery disease) (13) Pain of left lower extremity (14) Peripheral vascular disease (15) Rib pain on left side (16) Syncope (17) Upper GI bleed Surgical Problems: (1) Implantation of cardiac pacemaker Social History Smoking Status: Never Smoker Drug Use: none Marital Status: Housing status: lives with family Occupational Status: retired Immunizations History of Influenza Vaccine: Yes Influenza Vaccine Date: Jul 13, 2012 History of Tetanus Vaccine?: Yes Tetanus Immunization Date: Jul 13, 2002 History of Pneumococcal: Yes Pneumococcal Date: Jul 13, 2005 History of Hepatitis B Vaccine: No Allergies Coded Allergies: ESHA Inhibitors (Verified Adverse Reaction, Mild, COUGH, 05/09/18) Home Medications Scheduled Aspirin (Aspirin Ec), 81 MG PO QAM Atorvastatin (Lipitor), 40 MG PO HS Carvedilol (Coreg), 25 MG PO BID Cholecalciferol (Vitamin D3), 2,000 INTER.UNIT PO DAILY Furosemide (Furosemide), 80 MG PO QAM Isosorbide Mononitrate (Imdur Ext Rel), 120 MG PO BID Pantoprazole (Pantoprazole Sodium), 40 MG PO BID Potassium Chloride (Klor-Con M20), 20 MEQ PO DAILY Valsartan (Diovan), 160 MG PO BID Scheduled PRN Nitroglycerin (Nitrostat), 0.4 MG UT UD PRN for Chest Pain Tramadol (Ultram), 50 MG PO Q12 PRN for Pain Review of Systems Constitutional: + fever, + chills Respiratory: + cough, + shortness of breath, No sputum Cardiovascular: No chest pain, No palpitations Abdomen: No pain, No nausea, No vomiting, No diarrhea, No constipation Genitourinary - Male: No dysuria Physical Exam Vital Signs Date Time Temp Pulse Resp B/P (MAP) Pulse Ox O2 Delivery O2 Flow Rate FiO2 05/10/18 18:11 86 22 151/54 98 Oxymask 10.0 05/10/18 18:01 38.2 91 20 151/54 94 Nebulizer 05/10/18 17:55 70 20 172/65 90 Nebulizer 10.0 05/10/18 17:54 91 22 172/68 94 Oxymask 10.0 05/10/18 17:39 93 Oxymask 10.0 05/10/18 17:35 89 22 168/64 93 Oxymask 10.0 05/10/18 17:33 93 91 05/10/18 17:31 93 05/10/18 17:25 87 Room Air General Appearance: no apparent distress, + pertinent finding (pt wearing oxymask; able to provide hx and speak in full sentences) Head: normocephalic, atraumatic Eyes: normal inspection ENT: hearing grossly normal Respiratory/Chest: + decreased breath sounds (diffusely), + crackles (RLL and RML regions), + rhonchi (occasional), + pertinent finding (coughing repeatedly when asked to take a deep breath) Cardiovascular: regular rate, rhythm, no murmur Abdomen/GI: normal bowel sounds, non tender, soft Extremities/Musculoskelatal: no calf tenderness, + pertinent finding (trace RLE edema and 1+ LLE edema) Neurologic/Psych: alert, oriented x 3 Skin: normal color, warm/dry Diagnostics Laboratory Results Results Past 24 Hours Test 05/10/18 17:20 7/24/18 17:31 05/10/18 18:07 Range/Units White Blood Count 7.34 4.8-10.8 K/uL Red Blood Count 3.68 4.7-6.1 M/uL Hemoglobin 11.4 14.0-18.0 g/dL Hematocrit 35.4 42-52 % Mean Corpuscular Volume 96.2 80-100 fL Mean Corpuscular Hemoglobin 31.0 25-34 pg Mean Corpuscular Hemoglobin Concent 32.2 32-36 g/dl Platelet Count 339 130-400 K/uL Mean Platelet Volume 9.7 7.4-10.4 fL Neutrophils (%) (Auto) 74.3 % Lymphocytes (%) (Auto) 19.9 % Monocytes (%) (Auto) 3.1 % Eosinophils (%) (Auto) 1.9 % Basophils (%) (Auto) 0.5 % Neutrophils # (Auto) 5.45 1.4-6.5 K/uL Lymphocytes # (Auto) 1.46 1.2-3.4 K/uL Monocytes # (Auto) 0.23 0.11-0.59 K/uL Eosinophils # (Auto) 0.14 0-0.5 K/uL Basophils # (Auto) 0.04 0-0.2 K/uL RDW Standard Deviation 47.6 36.4-46.3 fL RDW Coefficient of Variation 13.7 11.5-14.5 % Immature Granulocyte % (Auto) 0.3 % Immature Granulocyte # (Auto) 0.02 0.00-0.02 K/uL Sodium Level 139 136-145 mmol/L Potassium Level 4.4 3.5-5.1 mmol/L Chloride Level 106 98-107 mmol/L Carbon Dioxide Level 24 21-32 mmol/L Anion Gap 9.0 3-11 mmol/L Blood Urea Nitrogen 19 7-18 mg/dl Creatinine 1.52 0.60-1.40 mg/dl Est Creatinine Clear Calc Drug Dose 32.4 ml/min Estimated GFR () 46.7 Estimated GFR (Non- 40.3 BUN/Creatinine Ratio 12.6 10-20 Random Glucose 157 70-99 mg/dl Calcium Level 8.6 8.5-10.1 mg/dl Total Bilirubin 0.7 0.2-1 mg/dl Direct Bilirubin 0.2 0-0.2 mg/dl Aspartate Amino Transf (AST/SGOT) 17 15-37 U/L Alanine Aminotransferase (ALT/SGPT) 19 12-78 U/L Alkaline Phosphatase 124 45-117 U/L Total Creatine Kinase 63 39-308 U/L Creatine Kinase MB 2.1 0.5-3.6 ng/ml Creatine Kinase MB Ratio 3.3 0-3.0 Troponin I < 0.015 0-0.045 ng/ml Pro-B-Type Natriuretic Peptide 1679 0-1800 pg/ml Total Protein 6.8 6.4-8.2 gm/dl Albumin 3.2 3.4-5.0 gm/dl Lipase 70 73-393 U/L Microbiology Results 05/10/18 Blood Culture, Ordered Pending 05/10/18 Blood Culture, Ordered Pending Diagnostic Radiology CHEST ONE VIEW PORTABLE HISTORY: 88 years-old Male Chest Pain acute atypical chest pain with respiratory distress COMPARISON: Chest radiograph 04/08/2018 TECHNIQUE: Portable AP view of the chest FINDINGS: Cardiac silhouette is enlarged, unchanged. Left subclavian pacer/ICD redemonstrated with leads appearing to be intact. Prior median sternotomy. Calcification of the aorta. No pneumothorax, pleural effusion or overt pulmonary edema. There is mild pulmonary vascular congestion. Subsegmental left basilar opacities suggest atelectasis. Ill-defined alveolar opacities about the left upper lobe. Degenerative changes of the shoulders and spine. IMPRESSION: 1. Cardiomegaly with mild pulmonary vascular congestion. 2. Ill-defined opacities of the left upper lobe suggest pneumonia or atelectasis. (CHEST FOR PE) ANGIO WITH CT DOSE: 455.84 mGy.cm HISTORY: Chest pain dyspnea TECHNIQUE: Multiaxial CT images of the chest were performed following the intravenous administration of contrast to evaluate the pulmonary arteries. Maximal intensity projection images were also obtained. A dose lowering technique was utilized adhering to the principles of ALARA. COMPARISON STUDY: None. FINDINGS: Moderate atelectatic change thoracic aorta. Pulmonary vasculature enhances appropriately. No filling defects. There is diffuse left hemithoracic infiltrate. This involves left upper as well as left lower lobe regions. Right lung is grossly clear. Moderate cardiomegaly. IMPRESSION: 1. Study is negative for pulmonary embolus. 2. Diffuse parenchymal infiltrate left hemithorax. EKG 89 - ventricular paced Impression Assessment and Plan 88 yoM with hx of CAD, PAD, systolic CHF EF 55% (2013), CKD III, HTN, HLD. Presents with chills and cough that started this afternoon. Found to be significantly hypoxic with O2 sat of 60% requiring 10L via oxymask and febrile to 38.2. CAD. Admitted for L sided pneumonia. Pneumonia - febrile to 38.2 - No WBC elevation - lactate 2.6 - CT chest PE concerning for diffuse L hemithorax infiltrates - CXR - CHAPIN opacity and mild pulmonary vascular congestion - O2 per protocol - Levaquin 750mg IV daily - Received Zosyn and Levaquin x 1 in the ED - Duoneb QID and PRN Systolic CHF - ECHO 2012 - EF 55% - stable - BNP 1679 - continue home Lasix, Valsartan and Coreg CAD/HTN/HLD - no chest pain - Continue home aspirin, Imdur, Coreg, valsartan and lipitor CKD III - Cr mildly elevated to 1.5 from baseline (Cr 1.3) - Follow BMP Hx of recent GI bleed - continue protonix DVT prop: Heparin SQ Code: Full Dispo: pending clinical improvement Resuscitation Status VTE Prophylaxis Will order VTE Prophylaxis: Yes Reviewed: Pt Seen/Exam by Me History Pt is feeling much improved. He is no longer SOB at rest, but is still on a facemask and has not been OOB. Pt had no issues until this AM when he had a fever an nausea. He had a coughing spell and then suddenly became SOB. Had been tolerating PO without issue until today. Denies chest pain. Agree with HPI/ROS as noted by resident General Appearance: WD/WN, no apparent distress Eye Exam: bilateral eye normal inspection, bilateral eye other (sclera nml) Respiratory: no respiratory distress, decreased breath sounds, crackles Cardiovascular: normal peripheral pulses, regular rate, rhythm Gastrointestinal: non tender, soft Extremities: non-tender, pedal edema (1+ pitting) Neurologic/Psychiatric: alert, normal mood/affect, oriented x 3 Skin Characteristics: normal color, warm/dry Assessment/Plan Agree with plan as outlined above Hypoxia, improving PNA noted on CXR Levaquin wean O2 as able Conservative IVF given CHF hx of LE swelling ? hx of asthma? Nebs scheduled for now
[2018-05-10] MEDS ORDERED: TRAMADOL HCL 50 MG TAB PO PRN (19:00)
[2018-05-10] MEDS ORDERED: MoRPHine SULFATE 2 MG/ML CARP IV PRN (19:00)
[2018-05-10] MEDS ORDERED: ALUMINUM/MAGNESIUM/SIMETH (MAALOX MAX) 30 ML UDC PO PRN (19:00)
[2018-05-10] MEDS ORDERED: MAGNESIUM HYDROXIDE SUSP 30 ML UDC PO PRN (19:00)
[2018-05-10] MEDS ORDERED: LEVOFLOXACIN / D5W 750 MG in PREMIXED IN D5W 150 ML IV SCH (19:00)
[2018-05-10] MEDS ORDERED: POLYETHYLENE (MIRALAX) 17 GM PACK PO PRN (19:00)
[2018-05-10] MEDS ORDERED: NITROGLYCERIN 0.4 MG SL PER TAB CHARGE SL PRN (19:00)
[2018-05-10] MEDS ORDERED: ONDANSETRON INJ 2 MG/ML 2 ML VIAL IV PRN (19:00)
[2018-05-10] MEDS ORDERED: ACETAMINOPHEN 325 MG TAB PO PRN (19:00)
[2018-05-10] MEDS ORDERED: CARV25TA PO (19:01)
[2018-05-10] MEDS ORDERED: NTRGSL/4 UT (19:02)
[2018-05-10] MEDS ORDERED: SODIUM CHLORIDE 0.9% 1000ML 1,000 ML IV STA (19:27)
[2018-05-10] MEDS ORDERED: MoRPHine SULFATE 4 MG/ML 1 ML CARP\\VIAL IV PRN (19:30)
[2018-05-10] MEDS ORDERED: ALBUT/IPRATROP 3MG/0.5MG NEB 3 ML VIAL INH SCH (20:00)
[2018-05-10 20:04] VITALS: BP 122/48; PULSE 71; TEMP 37; O2SAT 99; Ht 165.1 cm; Wt 86.7 kg
[2018-05-10] MEDS: VALSARTAN 80 MG TAB PO SCH (21:00)
[2018-05-10] MEDS: CARVEDILOL 25 MG TAB PO SCH (21:00)
[2018-05-10] MEDS: ISOSORBIDE MONONITRATE 60 MG TABCR PO SCH (21:00)
[2018-05-10] MEDS ORDERED: ASPI81TA28 PO (21:01)
--- NOTE | 2018-05-10 22:02 | EMERGENCY ROOM VISIT NOTE ---
History Report prepared by Scribe: Liliana White Under the Supervision of: Dr. Saad Alvarenga D.O. First contact with patient: 17:20 Stated Complaint: RESP. DISTRESS History of Present Illness The patient is a 88 year old male who presents to the Emergency Room with complaints of persistent shortness of breath. He was brought to the ED via EMS. When EMS arrived at his home, he was having "severe" shortness of breath that he developed around 1430 today. The patient was found to be hypoxic in the 70's and cyanotic. They placed him on CPAP and he started vomiting profusely, but his last O2 sat was 97. The patient states he has experienced persistent left leg pain for the past 10 days. He came to the ED last night for his leg pain and was sent home. He states around 1000 this morning, he briefly experienced chest pain, like someone hit him with a hammer. The patient has had 3 previous DE's and 5 previous bypass surgeries. He denies any recent syncopal events. He does take daily Lasix and denies any recently missed doses. Pt denies headache, change in vision, fevers, diarrhea, pain with urination, and melena. Source of History: patient, EMS Onset: 1400 today Position: chest Timing: other (persistent) Modifying Factors (Relieving): other (CPAP) Associated Symptoms: + chest pain, + nausea, + vomiting, No fevers, No headache, No melena, No diarrhea, No urinary symptoms Review of Systems See HPI for pertinent positives & negatives. A total of 10 systems reviewed and were otherwise negative. Past Medical & Surgical Medical Problems: (1) Asthma (2) Asthma, Unspecified (3) Benign hypertension (4) Congestive Heart Failure Nos (5) Coronary Atherosclerosis Of [place] Coronary Vessel (6) Heart disease (7) Hyperlipidemia Nec/Nos (8) Pneumonia (9) Syncope (10) Upper GI bleed Surgical Problems: (1) Implantation of cardiac pacemaker Family History Cancer Diabetes mellitus FH: heart disease Social History Smoking Status: Never Smoker Alcohol Use: none Drug Use: none Marital Status: Housing Status: lives with significant other Occupation Status: retired Current/Historical Medications Scheduled Aspirin (Aspirin Ec), 81 MG PO QAM Atorvastatin (Lipitor), 40 MG PO HS Carvedilol (Coreg), 25 MG PO BID Cholecalciferol (Vitamin D3), 2,000 INTER.UNIT PO DAILY Furosemide (Furosemide), 80 MG PO QAM Isosorbide Mononitrate (Imdur Ext Rel), 120 MG PO BID Pantoprazole (Pantoprazole Sodium), 40 MG PO BID Potassium Chloride (Klor-Con M20), 20 MEQ PO DAILY Valsartan (Diovan), 160 MG PO BID Scheduled PRN Nitroglycerin (Nitrostat), 0.4 MG UT UD PRN for Chest Pain Tramadol (Ultram), 50 MG PO Q12 PRN for Pain Allergies Coded Allergies: ESHA Inhibitors (Verified Adverse Reaction, Mild, COUGH, 05/09/18) Physical Exam Vital Signs Date Time Temp Pulse Resp B/P (MAP) Pulse Ox O2 Delivery O2 Flow Rate FiO2 05/10/18 19:08 69 22 120/41 05/10/18 18:33 76 20 97/71 98 Room Air 05/10/18 18:11 86 22 151/54 98 Oxymask 10.0 05/10/18 18:01 38.2 91 20 151/54 94 Nebulizer 05/10/18 17:55 70 20 172/65 90 Nebulizer 10.0 05/10/18 17:54 91 22 172/68 94 Oxymask 10.0 05/10/18 17:39 93 Oxymask 10.0 05/10/18 17:35 89 22 168/64 93 Oxymask 10.0 05/10/18 17:33 93 91 05/10/18 17:31 93 05/10/18 17:25 87 Room Air Physical Exam GENERAL: Sitting up in bed, alert, ill-appearing, in moderate distress, on CPAP EYE EXAM: normal conjunctiva. OROPHARYNX: no exudate, no erythema, lips, buccal mucosa, and tongue normal and mucous membranes are moist NECK: supple, no nuchal rigidity, no adenopathy, non-tender LUNGS: Rhonchi in bilateral lungs, diminished breath sounds on the left. Normal chest wall mechanics HEART: no murmurs, S1 normal and S2 normal ABDOMEN: abdomen soft, non-tender, normo-active bowel sounds, no masses, no rebound or guarding. BACK: Back is symmetrical on inspection and there is no deformity, no midline tenderness, no CVA tenderness. SKIN: no rashes and no bruising UPPER EXTREMITIES: upper extremities are grossly normal. LOWER EXTREMITIES: No pitting edema. Calves are equal bilaterally. NEURO EXAM: Normal sensorium, cranial nerves II-XII grossly intact, normal speech, no gross weakness of arms, no gross weakness of legs. Gross sensation intact. Medical Decision & Procedures ER Provider Diagnostic Interpretation: Radiology results as stated below per my review and the radiologist's interpretation: CHEST ONE VIEW PORTABLE HISTORY: 88 years-old Male Chest Pain acute atypical chest pain with respiratory distress COMPARISON: Chest radiograph 04/08/2018 TECHNIQUE: Portable AP view of the chest FINDINGS: Cardiac silhouette is enlarged, unchanged. Left subclavian pacer/ICD redemonstrated with leads appearing to be intact. Prior median sternotomy. Calcification of the aorta. No pneumothorax, pleural effusion or overt pulmonary edema. There is mild pulmonary vascular congestion. Subsegmental left basilar opacities suggest atelectasis. Ill-defined alveolar opacities about the left upper lobe. Degenerative changes of the shoulders and spine. IMPRESSION: 1. Cardiomegaly with mild pulmonary vascular congestion. 2. Ill-defined opacities of the left upper lobe suggest pneumonia or atelectasis. The above report was generated using voice recognition software. It may contain grammatical, syntax or spelling errors. Electronically signed by: Randy Moreau M.D. 05/10/2018 5:40 PM (CHEST FOR PE) ANGIO WITH CT DOSE: 455.84 mGy.cm HISTORY: Chest pain dyspnea TECHNIQUE: Multiaxial CT images of the chest were performed following the intravenous administration of contrast to evaluate the pulmonary arteries. Maximal intensity projection images were also obtained. A dose lowering technique was utilized adhering to the principles of ALARA. COMPARISON STUDY: None. FINDINGS: Moderate atelectatic change thoracic aorta. Pulmonary vasculature enhances appropriately. No filling defects. There is diffuse left hemithoracic infiltrate. This involves left upper as well as left lower lobe regions. Right lung is grossly clear. Moderate cardiomegaly. IMPRESSION: 1. Study is negative for pulmonary embolus. 2. Diffuse parenchymal infiltrate left hemithorax. The above report was generated using voice recognition software. It may contain grammatical, syntax or spelling errors. Electronically signed by: Clovis Dorsey M.D. 05/10/2018 5:52 PM Laboratory Results 05/10/18 17:20 Red Blood Count 3.68, Mean Corpuscular Volume 96.2, Mean Corpuscular Hemoglobin 31.0, Mean Corpuscular Hemoglobin Concent 32.2, Mean Platelet Volume 9.7, Neutrophils (%) (Auto) 74.3, Lymphocytes (%) (Auto) 19.9, Monocytes (%) (Auto) 3.1, Eosinophils (%) (Auto) 1.9, Basophils (%) (Auto) 0.5, Neutrophils # (Auto) 5.45, Lymphocytes # (Auto) 1.46, Monocytes # (Auto) 0.23, Eosinophils # (Auto) 0.14, Basophils # (Auto) 0.04 05/10/18 17:20 Test 05/10/18 17:20 05/10/18 18:43 White Blood Count 7.34 K/uL (4.8-10.8) Red Blood Count 3.68 M/uL (4.7-6.1) Hemoglobin 11.4 g/dL (14.0-18.0) Hematocrit 35.4 % (42-52) Mean Corpuscular Volume 96.2 fL (80-100) Mean Corpuscular Hemoglobin 31.0 pg (25-34) Mean Corpuscular Hemoglobin Concent 32.2 g/dl (32-36) Platelet Count 339 K/uL (130-400) Mean Platelet Volume 9.7 fL (7.4-10.4) Neutrophils (%) (Auto) 74.3 % Lymphocytes (%) (Auto) 19.9 % Monocytes (%) (Auto) 3.1 % Eosinophils (%) (Auto) 1.9 % Basophils (%) (Auto) 0.5 % Neutrophils # (Auto) 5.45 K/uL (1.4-6.5) Lymphocytes # (Auto) 1.46 K/uL (1.2-3.4) Monocytes # (Auto) 0.23 K/uL (0.11-0.59) Eosinophils # (Auto) 0.14 K/uL (0-0.5) Basophils # (Auto) 0.04 K/uL (0-0.2) RDW Standard Deviation 47.6 fL (36.4-46.3) RDW Coefficient of Variation 13.7 % (11.5-14.5) Immature Granulocyte % (Auto) 0.3 % Immature Granulocyte # (Auto) 0.02 K/uL (0.00-0.02) Anion Gap 9.0 mmol/L (3-11) Est Creatinine Clear Calc Drug Dose 32.4 ml/min Estimated GFR () 46.7 Estimated GFR (Non- 40.3 BUN/Creatinine Ratio 12.6 (10-20) Calcium Level 8.6 mg/dl (8.5-10.1) Total Bilirubin 0.7 mg/dl (0.2-1) Direct Bilirubin 0.2 mg/dl (0-0.2) Aspartate Amino Transf (AST/SGOT) 17 U/L (15-37) Alanine Aminotransferase (ALT/SGPT) 19 U/L (12-78) Alkaline Phosphatase 124 U/L (45-117) Total Creatine Kinase 63 U/L (39-308) Creatine Kinase MB 2.1 ng/ml (0.5-3.6) Creatine Kinase MB Ratio 3.3 (0-3.0) Troponin I < 0.015 ng/ml (0-0.045) Pro-B-Type Natriuretic Peptide 1679 pg/ml (0-1800) Total Protein 6.8 gm/dl (6.4-8.2) Albumin 3.2 gm/dl (3.4-5.0) Lipase 70 U/L (73-393) Venous Blood pH 7.34 (7.36-7.41) Venous Blood Partial Pressure CO2 43 mmHg (38.0-50.0) Venous Blood Partial Pressure O2 39 mmHg Venous Blood HCO3 23 mmol/L Venous Blood Oxygen Saturation 68.3 % Venous Blood Base Excess -2.9 mEq/L Lactic Acid Level 2.6 mmol/L (0.4-2.0) Laboratory results per my review. Medications Administered Medications (Trade) Dose Ordered Sig/Michel Route Start Time Stop Time Status Last Admin Dose Admin Albuterol/ Ipratropium (Duoneb) 3 ml NOW STAT INH 05/10/18 17:29 05/10/18 17:30 DC 05/10/18 17:57 3 ML Aspirin (Aspirin Chew) 324 mg NOW STAT PO 05/10/18 17:30 05/10/18 17:31 DC 05/10/18 17:57 324 MG Piperacillin Sod/ Tazobactam Sod (Zosyn Iv) 4.5 gm NOW STAT IV 05/10/18 18:03 05/10/18 18:05 DC 05/10/18 18:26 4.5 GM Levofloxacin (Levaquin / D5W) 750 mg NOW STAT IV 05/10/18 18:03 05/10/18 18:05 DC 05/10/18 18:26 750 MG ECG Per My Interpretation Indication: SOB/dyspnea Rate (beats per minute): 89 Rhythm: other (Atrial sensed, ventricularly paced) Findings: RBBB, other (normal axis) ED Course ED COURSE: Vital signs were reviewed and showed the patient is hypoxic, hypotensive and tachycardic. The patients medical record was reviewed The above diagnostic studies were performed and reviewed. ED treatments and interventions as stated above. 1723: The patient was evaluated in room A1. A complete history and physical examination was performed. 1729: DuoNeb 3 ml INH. 1730: Aspirin 324 mg PO. 1803: Levaquin 750 mg IV, Zosyn 4.5 gm IV. 1814: I discussed the patients case with Dr. Woodward, [facility] Hospitalist. The patient will be further evaluated. 1820: Upon reevaluation, the patient is feeling well and resting comfortably. I discussed my findings with the patient and he understands and agrees with the treatment plan. Based on the patients age, coexisting illnesses, exam and lab findings the decision to treat as an inpatient was made. The patient remained stable while under my care. The patient will be evaluated for further management. Medical Decision Differential diagnoses includes but is not limited to pneumonia, bronchitis, COPD/Asthma exacerbation, pneumothorax, pulmonary embolism, congestive heart failure, acute coronary syndrome. Patient is an 88-year-old male who presents the ER for chest pain shortness of breath which is been worsening over the past 24 hours. Patient does not admit to any specific respiratory symptoms with the exception of a runny nose for the past several days with some mild shortness of breath. CBC along with BMP was unremarkable. Lactic acid was elevated 2.6. Bilirubin and LFTs was unremarkable. Troponin was negative. BNP was not elevated. Lipase was normal. When patient presented with EMS he was on CPAP. We switched him to an oxygen mask at 10 L. He maintained his oxygen saturations at 88-95%. CT PE was performed as he was in here yesterday for leg pain and he was significantly hypoxic found to be in the 60s at home and blue today. CT PE does show diffuse infiltrate on the left. Patient was covered with broad-spectrum antibiotics. He was given IV fluids. He was admitted to internal medicine on 10 L oxygen facemask after broad-spectrum antibiotics. He was monitored closely in the ER. Medication Reconcilliation Current Medication List: was personally reviewed by me Blood Pressure Screening Patient's blood pressure: Low blood pressure Consults Time Called: 1809 Consulting Physician: Dr. Woodward [facility] Hospitalist Returned Call: 1813 I discussed the patients case with Dr. Woodward, [facility] Hospitalist. The patient will be further evaluated. Impression Primary Impression: Sepsis Additional Impression: Pneumonia Scribe Attestation The scribe's documentation has been prepared under my direction and personally reviewed by me in its entirety. I confirm that the note above accurately reflects all work, treatment, procedures, and medical decision making performed by me. Departure Information Dispostion Being Evaluated By Hospitalist Referrals ,Sukhi Robertson M.D. (PCP) Problem Qualifiers Primary Impression: Sepsis Sepsis type: sepsis due to unspecified organism Qualified Codes: A41.9 - Sepsis, unspecified organism Additional Impression: Pneumonia Pneumonia type: due to unspecified organism Laterality: unspecified laterality Lung location: unspecified part of lung Qualified Codes: J18.9 - Pneumonia, unspecified organism
[2018-05-10] MEDS: ATORVASTATIN 40 MG TAB PO SCH (22:31)
[2018-05-10] MEDS: PANTOprazole SOD 40 MG TAB PO SCH (22:32)
[2018-05-10] MEDS: HEPARIN SOD 5000 UNIT/0.5 ML CARP SQ SCH (22:34)
[2018-05-11] VITALS (10 sets, daily range): BP systolic 82–125; BP diastolic 33–65; PULSE 60–68; TEMP 36.6–37; O2SAT 92–99
[2018-05-11 04:43] LABS: BASO % 0.1 %; BASO ABS # 0.02 K/uL (0-0.2); EOS % 0.1 %; EOS ABS # 0.01 K/uL (0-0.5); HEMATOCRIT 29.4 % (42-52); HEMOGLOBIN 9.5 g/dL (14.0-18.0); IG# 0.05 K/uL (0.00-0.02); LYMPH % 11.1 %; LYMPH ABS # 1.57 K/uL (1.2-3.4); MEAN CELL VOLUME 94.8 fL (80-100); MEAN CORPUSCULAR HEMOGLOBIN 30.6 pg (25-34); MEAN CORPUSCULAR HGB CONC 32.3 g/dl (32-36); MEAN PLATELET VOLUME 9.6 fL (7.4-10.4); MONO % 7.7 %; MONO ABS # 1.09 K/uL (0.11-0.59); NEUT % 80.6 %; NEUT ABS # 11.44 K/uL (1.4-6.5); PLATELET COUNT 230 K/uL (130-400); RED CELL DISTRIBUTION WIDTH CV 13.7 % (11.5-14.5); RED CELL DISTRIBUTION WIDTH SD 47.6 fL (36.4-46.3); WHITE BLOOD COUNT 14.18 K/uL (4.8-10.8)
[2018-05-11 05:14] LABS: ALBUMIN 2.5 gm/dl (3.4-5.0); CALCIUM 8.1 mg/dl (8.5-10.1); CREATININE 1.69 mg/dl (0.60-1.40); TOTAL PROTEIN 5.7 gm/dl (6.4-8.2)
[2018-05-11] MEDS: ISOSORBIDE MONONITRATE 60 MG TABCR PO SCH ×2 (08:34→21:10)
[2018-05-11] MEDS: CARVEDILOL 25 MG TAB PO SCH ×2 (08:34→21:10)
[2018-05-11] MEDS: VALSARTAN 80 MG TAB PO SCH (08:35)
[2018-05-11] MEDS: PANTOprazole SOD 40 MG TAB PO SCH ×2 (08:35→21:37)
[2018-05-11] MEDS: CHOLECALCIFEROL 1000 INTER.UNIT TAB PO SCH (08:35)
[2018-05-11] MEDS: ASPIRIN 81 MG ECTAB PO SCH (08:35)
[2018-05-11] MEDS: POTASSIUM CHLORIDE 20 MEQ TABCR PO SCH (08:36)
[2018-05-11] MEDS: HEPARIN SOD 5000 UNIT/0.5 ML CARP SQ SCH ×2 (08:36→21:40)
[2018-05-11] MEDS ORDERED: FUROSEMIDE 80 MG TAB PO SCH (09:00)
--- NOTE | 2018-05-11 09:28 | Clinical Documentation Query ---
CLINICAL DOCUMENTATION QUERY 88 year old male who presents to the Emergency Room with complaints of persistent shortness of breath. Patient found to have pneumonia. Query #1/2 In your clinical opinion is this patient being managed for: ( x ) Sepsis POA in setting of pneumonia e/b fever, tachycardia, leukocytosis, hypoxia, SOFA score >=2, +SIRS ( ) Not Agree ( ) Other explanation of clinical findings (No explanation is considered a No Response) ( ) Unable to determine ( ) Need to Discuss (Phone CDS or qliq) (No discussion is considered a No Response) The medical record reflects the following clinical findings, treatment, and risk factors. Clinical Indicators: Fever 38.6, WBC 7.34->140.18, hypoxia 60%, Lactic acid 2.6, Total Bilirubin 1.2, Treatment: IV Levaquin, IV Zosyn, IVF bolus, telemetry, Risk Factors: Age, pneumonia, Query #2/2 In your clinical opinion is this patient being managed for: (x ) Acute respiratory failure with hypoxia e/b hypoxia in 60% requiring 10L oxymask. ( ) Not Agree ( ) Other explanation of clinical findings (No explanation is considered a No Response) ( ) Unable to determine ( ) Need to Discuss (Phone CDS or qliq) (No discussion is considered a No Response) The medical record reflects the following clinical findings, treatment, and risk factors. Clinical Indicators: Moderate distress per ED physician, EMS noted cyanosis and to be hypoxic in 70%'s. Treatment: CPAP, O2, Nebs Risk Factors: Age, pneumonia, CHF Please clarify and document your clinical opinion in the progress notes and discharge summary. Terms such as "probable", "suspected", "likely", "questionable", "possible", or "still to be ruled out" are acceptable. IF IN AGREEMENT, YOU MUST DOCUMENT ABOVE DIAGNOSTIC STATEMENT IN DAILY PROGRESS NOTES AND DISCHARGE SUMMARY. This document is not part of the patient's record. Thank You, Reece Brewster RN [phone] & via [email or web address]
[2018-05-11] MEDS ORDERED: ALBUT/IPRATROP 3MG/0.5MG NEB 3 ML VIAL INH PRN (12:00)
--- NOTE | 2018-05-11 12:12 | Family Medicine Progress Note ---
Progress Note Date of Service May 11, 2018. Subjective Pt reports feeling much improvement since he came in - was feeling lethargic and + dry cough prior to admission. C/o recent orthopnea, paroxysmal nocturnal dyspnea as well. Denies weight gain. Has lost 20lbs in the last year due to eating smaller portions and watching what he eats. Tolerating PO, denies dysuria. ROS See HPI for pertinent positives and negatives. Otherwise denies new headache, vision change, chest pain, dyspnea, abdominal pain, loose or bloody stools, dysuria, or numbness tingling in extremities. Medications Current Inpatient Medications Medications (Trade) Dose Ordered Sig/Michel Route Start Time Stop Time Status Last Admin Dose Admin Ioversol (Optiray 320) 111 ml UD PRN IV 05/10/18 17:30 05/14/18 17:29 Heparin Sodium (Porcine) (Heparin Sq 5000 Unit/0.5ml) 5,000 unit Q12 SQ 05/10/18 21:00 06/09/18 20:59 05/11/18 08:36 5,000 UNIT Acetaminophen (Tylenol Tab) 650 mg Q4H PRN PO 05/10/18 19:00 06/09/18 18:59 Al Hydrox/Mg Hydrox/Simethicone (Maalox Max Susp) 15 ml Q4H PRN PO 05/10/18 19:00 06/09/18 18:59 Magnesium Hydroxide (Milk Of Magnesia Susp) 30 ml Q12H PRN PO 05/10/18 19:00 06/09/18 18:59 Ondansetron HCl (Zofran Inj) 4 mg Q6H PRN IV 05/10/18 19:00 06/09/18 18:59 Nitroglycerin (Nitrostat Tab) 0.4 mg UD PRN SL 05/10/18 19:00 06/09/18 18:59 Polyethylene (Miralax Powder Packet) 17 gm DAILY PRN PO 05/10/18 19:00 06/09/18 18:59 Albuterol/ Ipratropium (Duoneb) 3 ml QIDR INH 05/10/18 20:00 06/09/18 19:59 Aspirin (Ecotrin Tab) 81 mg QAM PO 05/11/18 09:00 06/10/18 08:59 05/11/18 08:35 81 MG Atorvastatin Calcium (Lipitor Tab) 40 mg HS PO 05/10/18 21:00 06/09/18 20:59 05/10/18 22:31 40 MG Carvedilol (Coreg Tab) 25 mg BID PO 05/10/18 21:00 06/09/18 20:59 05/11/18 08:34 25 MG Furosemide (Lasix Tab) 80 mg QAM PO 05/11/18 09:00 06/10/18 08:59 05/11/18 08:34 80 MG Isosorbide Mononitrate (Imdur Ext Rel Tab) 120 mg BID PO 05/10/18 21:00 06/09/18 20:59 05/11/18 08:34 120 MG Pantoprazole Sodium (Protonix Tab) 40 mg BID PO 05/10/18 21:00 06/09/18 20:59 05/11/18 08:35 40 MG Potassium Chloride (Klor-Con Tab) 20 meq DAILY PO 05/11/18 09:00 06/10/18 08:59 05/11/18 08:36 20 MEQ Tramadol HCl (Ultram Tab) 50 mg Q12 PRN PO 05/10/18 19:00 06/09/18 18:59 Valsartan (Diovan Tab) 160 mg BID PO 05/10/18 21:00 06/09/18 20:59 05/11/18 08:35 160 MG Cholecalciferol (Vitamin D Tab) 2,000 inter.unit DAILY PO 05/11/18 09:00 06/10/18 08:59 05/11/18 08:35 2,000 INTER.UNIT Morphine Sulfate (MoRPHine SULFATE INJ) 2 mg Q30M PRN IV 05/10/18 19:30 05/24/18 19:29 Levofloxacin 750 mg/Prmx 150 ml @ 100 mls/hr Q48H IV 05/12/18 18:00 05/17/18 17:59 Albuterol/ Ipratropium (Duoneb) 3 ml QID PRN INH 05/11/18 12:00 06/10/18 11:59 UNV Objective Vital Signs Date Time Temp Pulse Resp B/P (MAP) Pulse Ox O2 Delivery O2 Flow Rate FiO2 05/11/18 08:00 Nasal Cannula 2.0 05/11/18 08:00 36.6 67 18 119/65 (83) 96 Nasal Cannula 2.0 05/11/18 04:21 63 19 125/60 (81) 99 Nasal Cannula 2.0 05/11/18 04:01 36.8 62 20 88/33 (51) 94 Nasal Cannula 2.0 05/11/18 00:01 36.9 68 20 106/48 (67) 96 Nasal Cannula 2.0 05/10/18 23:59 Nasal Cannula 2.0 05/10/18 20:04 37.0 71 22 122/48 99 Mask 5.0 05/10/18 19:51 71 16 118/50 100 05/10/18 19:33 70 18 106/45 100 Oxymask 10.0 05/10/18 19:08 69 22 120/41 05/10/18 18:33 76 20 97/71 98 Room Air 05/10/18 18:11 86 22 151/54 98 Oxymask 10.0 05/10/18 18:01 38.2 91 20 151/54 94 Nebulizer 05/10/18 17:55 70 20 172/65 90 Nebulizer 10.0 05/10/18 17:54 91 22 172/68 94 Oxymask 10.0 05/10/18 17:39 93 Oxymask 10.0 05/10/18 17:35 89 22 168/64 93 Oxymask 10.0 05/10/18 17:33 93 91 05/10/18 17:31 93 05/10/18 17:25 87 Room Air Physical Exam Notes: GENERAL: Awake, alert, well-appearing, in no distress. Nasal cannula in place. HENT: Normocephalic, atraumatic. Hoarse voice.. EYES: Normal conjunctiva. Sclera non-icteric. EOMI NECK: Supple. Full range of motion. no JVD RESPIRATORY: + mild wheeze and crackles on LEFT side, right side wnl CARDIAC: Regular rate, normal rhythm. Extremities warm and well perfused. Pulses equal. ABDOMEN: Soft, non-distended. No tenderness to palpation. No rebound or guarding. No masses. LOWER EXTREMITIES: Calves are equal size bilaterally and non-tender. Trace edema. No discoloration. NEURO: No motor deficits noted. SKIN: No rash or jaundice noted. Laboratory Results 05/11/18 04:11 Red Blood Count 3.10, Mean Corpuscular Volume 94.8, Mean Corpuscular Hemoglobin 30.6, Mean Corpuscular Hemoglobin Concent 32.3, Mean Platelet Volume 9.6, Neutrophils (%) (Auto) 80.6, Lymphocytes (%) (Auto) 11.1, Monocytes (%) (Auto) 7.7, Eosinophils (%) (Auto) 0.1, Basophils (%) (Auto) 0.1, Neutrophils # (Auto) 11.44, Lymphocytes # (Auto) 1.57, Monocytes # (Auto) 1.09, Eosinophils # (Auto) 0.01, Basophils # (Auto) 0.02 05/11/18 04:11 Test 05/10/18 17:20 05/10/18 18:43 05/11/18 04:11 Direct Bilirubin 0.2 mg/dl (0-0.2) Total Creatine Kinase 63 U/L (39-308) Creatine Kinase MB 2.1 ng/ml (0.5-3.6) Creatine Kinase MB Ratio 3.3 (0-3.0) Troponin I < 0.015 ng/ml (0-0.045) Pro-B-Type Natriuretic Peptide 1679 pg/ml (0-1800) Lipase 70 U/L (73-393) Venous Blood pH 7.34 (7.36-7.41) Venous Blood Partial Pressure CO2 43 mmHg (38.0-50.0) Venous Blood Partial Pressure O2 39 mmHg Venous Blood HCO3 23 mmol/L Venous Blood Oxygen Saturation 68.3 % Venous Blood Base Excess -2.9 mEq/L Lactic Acid Level 2.6 mmol/L (0.4-2.0) White Blood Count 14.18 K/uL (4.8-10.8) Red Blood Count 3.10 M/uL (4.7-6.1) Hemoglobin 9.5 g/dL (14.0-18.0) Hematocrit 29.4 % (42-52) Mean Corpuscular Volume 94.8 fL (80-100) Mean Corpuscular Hemoglobin 30.6 pg (25-34) Mean Corpuscular Hemoglobin Concent 32.3 g/dl (32-36) Platelet Count 230 K/uL (130-400) Mean Platelet Volume 9.6 fL (7.4-10.4) Neutrophils (%) (Auto) 80.6 % Lymphocytes (%) (Auto) 11.1 % Monocytes (%) (Auto) 7.7 % Eosinophils (%) (Auto) 0.1 % Basophils (%) (Auto) 0.1 % Neutrophils # (Auto) 11.44 K/uL (1.4-6.5) Lymphocytes # (Auto) 1.57 K/uL (1.2-3.4) Monocytes # (Auto) 1.09 K/uL (0.11-0.59) Eosinophils # (Auto) 0.01 K/uL (0-0.5) Basophils # (Auto) 0.02 K/uL (0-0.2) RDW Standard Deviation 47.6 fL (36.4-46.3) RDW Coefficient of Variation 13.7 % (11.5-14.5) Immature Granulocyte % (Auto) 0.4 % Immature Granulocyte # (Auto) 0.05 K/uL (0.00-0.02) Anion Gap 8.0 mmol/L (3-11) Est Creatinine Clear Calc Drug Dose 30.3 ml/min Estimated GFR () 41.1 Estimated GFR (Non- 35.5 BUN/Creatinine Ratio 14.1 (10-20) Calcium Level 8.1 mg/dl (8.5-10.1) Total Bilirubin 1.2 mg/dl (0.2-1) Aspartate Amino Transf (AST/SGOT) 10 U/L (15-37) Alanine Aminotransferase (ALT/SGPT) 15 U/L (12-78) Alkaline Phosphatase 82 U/L (45-117) Total Protein 5.7 gm/dl (6.4-8.2) Albumin 2.5 gm/dl (3.4-5.0) Globulin 3.2 gm/dl (2.5-4.0) Albumin/Globulin Ratio 0.8 (0.9-2) Date/Time Source Procedure Growth Status 05/10/18 20:15 Nasal MRSA DNA Surveillance Screen - Final Specimen Negative for MRSA by DNA Probe Complete Assessment and Plan 88M here for pneumonia PMHx includes: 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 - on levaquin, renally dosed - O2 per protocol. Required 10L via oxy mask overnight - now requiring 2L NC. Improving - Duonebs changed from scheduled to PRN given improvement TANIA on CKD - baseline state manager appears to be 1.2-1.4 - will give just 1 L NSS @ 75ml/hr, last echo showed normal systolic function HTN - normal to low systolic pressures here (SBP 80s-125) -- hold PM dose cozaar also due elev. state manager as above. CHF - continue lasix - continue carvedilol DVT ppx: heparin 5000 unit q12 FEN/GI: avoid aggressive diuresis given CHF. AHA diet Dispo: Tele. Home on dc. Resident Physician Supervision Note: I interviewed and examined the patient. Discussed with Dr. Frank and agree with findings and plan as documented in the note. Any exceptions or clarifications are listed here: None Documented By: Saad Correa feeling better "when can i go home" breathing improved vitals noted nad breathing unlabored sl rales L lung suprisingly clear CAP vs less likely HAP (responding like CAP, but has had recent touches w healthcare system, but MRSA negative so levaquin would cover both anyway) - improving - levaquin, supportive care acute hypoxic respiratory failure and probable sepsis on admission - related to above. improving nicely Continued [facility] stay due to: abnormal vital signs, multiple IV medications needed Resident Tracking Resident Involvement: Resident Care Provided Care Provided: Adult Hospital Medicine
[2018-05-11] MEDS ORDERED: SODIUM CHLORIDE 0.9% 1000ML 1,000 ML IV SCH (16:30)
[2018-05-11] MEDS: ATORVASTATIN 40 MG TAB PO SCH (21:37)
[2018-05-12] VITALS (7 sets, daily range): BP systolic 112–127; BP diastolic 54–68; PULSE 59–73; TEMP 36.8–37.4; O2SAT 92–99
[2018-05-12 05:56] LABS: BASO % 0.3 %; BASO ABS # 0.03 K/uL (0-0.2); EOS % 0.9 %; EOS ABS # 0.11 K/uL (0-0.5); HEMOGLOBIN 8.8 g/dL (14.0-18.0); IG# 0.05 K/uL (0.00-0.02); LYMPH % 15.2 %; LYMPH ABS # 1.82 K/uL (1.2-3.4); MEAN CELL VOLUME 95.7 fL (80-100); MEAN CORPUSCULAR HEMOGLOBIN 31.2 pg (25-34); MEAN CORPUSCULAR HGB CONC 32.6 g/dl (32-36); MEAN PLATELET VOLUME 9.8 fL (7.4-10.4); MONO % 9.1 %; MONO ABS # 1.09 K/uL (0.11-0.59); NEUT % 74.1 %; NEUT ABS # 8.85 K/uL (1.4-6.5); PLATELET COUNT 220 K/uL (130-400); RED CELL DISTRIBUTION WIDTH CV 13.7 % (11.5-14.5); RED CELL DISTRIBUTION WIDTH SD 48.3 fL (36.4-46.3); WHITE BLOOD COUNT 11.95 K/uL (4.8-10.8)
[2018-05-12 06:26] LABS: CALCIUM 8.3 mg/dl (8.5-10.1); CREATININE 1.91 mg/dl (0.60-1.40); POTASSIUM 4.1 mmol/L (3.5-5.1)
[2018-05-12] MEDS: HEPARIN SOD 5000 UNIT/0.5 ML CARP SQ SCH (09:00)
[2018-05-12] MEDS: PANTOprazole SOD 40 MG TAB PO SCH (09:41)
[2018-05-12] MEDS: POTASSIUM CHLORIDE 20 MEQ TABCR PO SCH (09:41)
[2018-05-12] MEDS: ISOSORBIDE MONONITRATE 60 MG TABCR PO SCH (09:41)
[2018-05-12] MEDS: CHOLECALCIFEROL 1000 INTER.UNIT TAB PO SCH (09:42)
[2018-05-12] MEDS: ASPIRIN 81 MG ECTAB PO SCH (09:43)
[2018-05-12] MEDS: CARVEDILOL 25 MG TAB PO SCH (09:43)
--- NOTE | 2018-05-12 11:54 | Discharge Instructions ---
Discharge Instructions Date of Service May 12, 2018. Admission Reason for Admission: Pneumonia Discharge Discharge Diagnosis / Problem: Pneumonia, TANIA Discharge Goals Goal(s): Decrease discomfort, Improve disease control, Diagnostic testing, Therapeutic intervention Activity Recommendations Activity Limitations: per Instructions/Follow-up section . Instructions / Follow-Up Instructions / Follow-Up You were admitted due to need for oxygen, and were found to have a significant left sided pneumonia Please continue the antibiotic as prescribed: LEVAQUIN 05/13 no pill Sat 05/14 take 1 tab Sun 05/15 no pill 05/16 take 1 tab Tue 05/17 no pill 05/18 take 1 tab Thur 05/19 no pill 05/20 take FINAL 1 tab. Sat 05/21 STOP. Get your blood drawn next week - this is to monitor your kidney function - the results of this will be sent to your primary care doctor. STOP your furosemide (water pill, "Lasix") for now, and then RESUME it on Wednesday 05/16. - between now and then, monitor your weight. - call your doctor if you are gaining weight to let him know Follow up with your primary care physician next week Be well A Zac Current Hospital Diet Patient's current hospital diet: AHA Diet (Heart Healthy), Low Sodium Diet (2gm Na) Discharge Diet Recommended Diet: AHA Diet (Heart Healthy), Low Sodium Diet (2gm Na) Pending Studies Studies pending at discharge: no Laboratory Results Hemoglobin A1c Test 04/05/18 07:14 Range/Units Estimated Average Glucose 117 mg/dl Hemoglobin A1c 5.7 H 4.5-5.6 % Lipid Panel Test 05/05/18 07:38 Range/Units Triglycerides Level 112 0-150 mg/dl Cholesterol Level 96 0-200 mg/dl HDL Cholesterol 36 mg/dl Cholesterol/HDL Ratio 2.7 LDL Cholesterol, Calculated 38 mg/dl Medical Emergencies . Who to Call and When: Medical Emergencies: If at any time you feel your situation is an emergency, please call 911 immediately. . Non-Emergent Contact Non-Emergency issues call your: Primary Care Provider Call Non-Emergent contact if: your pain is concerning you, you have any medication questions . . "Provider Documentation" section prepared by Erica Frank. .
[2018-05-12] MEDS ORDERED: LVQ750 PO (11:57)
--- NOTE | 2018-05-12 12:00 | Discharge Summary ---
Discharge Summary Date of Service May 12, 2018. Discharge Summary Admission Date: May 10, 2018 at 19:18 Discharge Date: May 12, 2018 Discharge Disposition: Home Principal Diagnosis: Pneumonia Problems/Secondary Diagnoses: TANIA on CKD Immunizations: Have You Had Influenza Vaccine: Yes Influenza Vaccine Date: Jul 13, 2012 History of Tetanus Vaccine?: Yes Tetanus Immunization Date: Jul 13, 2002 History of Pneumococcal: Yes Pneumococcal Date: Jul 13, 2005 History of Hepatitis B Vaccine: No Medication Reconciliation New Medications: Levofloxacin (Levofloxacin) 750 Mg Tab 750 MG PO ONE for 10 Days, #4 TAB Sat 05/14 take 1 tab Sun x Mon 05/16 take 1 tab Tue x 05/18 take 1 tab Thur x 05/20 take FINAL 1 tab. STOP Continued Medications: Aspirin (Aspirin Ec) 81 Mg Tab 81 MG PO QAM Atorvastatin (Lipitor) 40 Mg Tab 40 MG PO HS, TAB Carvedilol (Coreg) 25 Mg Tab 25 MG PO BID, TAB Cholecalciferol (Vitamin D3) 2,000 Unit Tab 2000 INTER.UNIT PO DAILY, TAB Furosemide (Furosemide) 80 Mg Tab 80 MG PO QAM Isosorbide Mononitrate (Imdur Ext Rel) 120 Mg Tab 120 MG PO BID, TAB Nitroglycerin (Nitrostat) 0.4 Mg Tab 0.4 MG UT UD PRN for Chest Pain, BTL PLACE ONE TABLET UNDER THE TONGUE EVERY 5 MINUTES FOR UP TO 3 DOSES IF NEEDED FOR CHEST PAIN. Pantoprazole (Pantoprazole Sodium) 40 Mg Tab 40 MG PO BID Potassium Chloride (Klor-Con M20) 20 Meq Tabcr 20 MEQ PO DAILY Tramadol (Ultram) 50 Mg Tab 50 MG PO Q12 PRN for Pain, TAB Valsartan (Diovan) 160 Mg Tab 160 MG PO BID, TAB Discharge Exam Pt stable on day of discharge. Tolerating PO, ambulating with out need for oxygen. ROS See HPI for pertinent positives and negatives. Otherwise denies new headache, vision change, chest pain, dyspnea, abdominal pain, loose or bloody stools, dysuria, or numbness tingling in extremities. PHYSICAL EXAM GENERAL: Awake, alert, well-appearing, in no distress. No nasal cannula HENT: Normocephalic, atraumatic. EYES: Normal conjunctiva. Sclera non-icteric. NECK: Supple. Full range of motion. no JVD RESPIRATORY: Slightly diminished on the left side but no crackles, rales or wheeze heard. CARDIAC: Regular rate, normal rhythm. Extremities warm and well perfused. Pulses equal. LOWER EXTREMITIES: No edema. No discoloration. NEURO: No motor deficits noted. SKIN: No rash or jaundice noted. Hospital Course Mr. Dumont is an 88-year-old male admitted via the ED for acute shortness of breath, hypoxia, and found to have left upper and middle lobe infiltrate. Patient required 10 L via oxygen mask initially but on the morning after admission was only requiring 2 L via nasal cannula. Patient improved greatly with antibiotics including Levaquin. Patient was sent home with Levaquin to complete a total of 10 days please note his prescription was adjusted due to estimated creatinine clearance, to be taken every 48 hours. Due to acute elevation in creatinine, likely secondary to illness, secondary to chronic Lasix administration, patient's medications were renally dosed. IV fluid hydration was not aggressively done due to history of congestive heart failure. Recommend repeat lab to check creatinine on Wednesday, May 16. A prescription was given to patient for this purpose. We also instructed the patient to hold his Lasix until Wednesday with strict guidelines to weigh himself daily. And that should his weight increased significantly to alert his primary care physician and go ahead and take his Lasix. Baseline creatinine appears to be between 1.2 and 1.4. On admission creatinine was 1.5 to. Creatinine on day of discharge is 1.9 No other changes were made to his chronic medication. It was a pleasure taking care of Mr. Gambino. Erica Frank MD Resident Physician Supervision Note: I interviewed and examined the patient. Discussed with Dr. Frank and agree with findings and plan as documented in the note. Any exceptions or clarifications are listed here: None Documented By: Saad Correa feeling better wants to go home breathing improved vitals noted nad breathing unlabored off O2 no conversational dyspnea, present who understands explanations as well CAP vs less likely HAP (responding like CAP, but has had recent touches w healthcare system, but MRSA negative so levaquin would cover both anyway) - improving - levaquin, supportive care, stable for home acute hypoxic respiratory failure and probable sepsis on admission - related to above. improving nicely - off O2 already elevated creatinine - relates to home lasix + pneumonia - lasix on hold, does not appear unstable or true renal failure to warrant prolonged inpt stay for IV fluids - d/w pt frankly risk/benefit of dc today vs staying with fluids - main risk being that his creatniine doesn't improve enough over next few days and he ends up requiring IVF, vs risk of fluid accumulation w s/s CHF prior to proscribed course. both unlikely. he/ express understanding ---> no lasix next 3 days. BMP Wednesday (day 4) - depending on improvement in creatinine on wednesday's BMP - anticipate resuming lasix then. recent UGI bleed - expressed doubts about his theory that percussion on exam by cardiology led to UGI bleeding. Total Time Spent: Greater than 30 minutes This includes examination of the patient, discharge planning, medication reconciliation, and communication with other providers. Discharge Instructions Please refer to the electronic Patient Visit Report (Discharge Instructions) for additional information. Additional Copies To Sukhi Burrell M.D. Resident Tracking Resident Involvement: Resident Care Provided Care Provided: Adult [facility]
[2018-05-12] MEDS ORDERED: LEVOFLOXACIN 750 MG TAB PO ONE (12:15)
[2018-05-12] MEDS ORDERED: LEVOFLOXACIN / D5W 750 MG in PREMIXED IN D5W 150 ML IV SCH (18:00)
== END 2018-05-12 13:35 | disposition home or self-care (01) | DRG 871 ==
LOC: EDBD 17:22 → C.EDA 17:24 → C.MSICU 19:18 → ENRESERV 19:42 → C.MED 05-11 14:16
PROVIDERS: ADMIT Family Medicine; ATTEND Family Medicine
DX: A41.9 Sepsis, unspecified organism (principal); J18.9 Pneumonia, unspecified organism; J96.01 Acute respiratory failure with hypoxia; I50.22 Chronic systolic (congestive) heart failure; I13.0 Hypertensive heart and chronic kidney disease with heart failure and stage 1 through stage 4 chronic kidney disease, or unspecified chronic kidney disease; I25.2 Old myocardial infarction; I25.10 Atherosclerotic heart disease of native coronary artery without angina pectoris; N18.3 Chronic kidney disease, stage 3 (moderate); J45.909 Unspecified asthma, uncomplicated; E78.5 Hyperlipidemia, unspecified; Z51.81 Encounter for therapeutic drug level monitoring; Z79.899 Other long term (current) drug therapy; Z79.82 Long term (current) use of aspirin; Z95.1 Presence of aortocoronary bypass graft; Z95.0 Presence of cardiac pacemaker; Z87.19 Personal history of other diseases of the digestive system; Z88.8 Allergy status to other drugs, medicaments and biological substances; Z83.3 Family history of diabetes mellitus

== ENCOUNTER → 2018-05-17 | Outpatient (CLI) | payer OTHER ==
[~2018-05-17] MED LIST changes: +ASPI81TA28 PO; +CARV25TA PO; +FERR1TAB62 PO; -LSX40 PO; +LSX80 PO; +LVQ750 PO; +NTRGSL/4 UT; -PANT40TA PO; +PANT40TA2 PO; +POTA-639 PO; +TRAM-10 PO
[2018-05-17 16:48] LABS: MEAN CORPUSCULAR HGB CONC 31.4 g/dl (32-36); MEAN PLATELET VOLUME 9.9 fL (7.4-10.4); PLATELET COUNT 364 K/uL (130-400)
[2018-05-17 17:02] LABS: BLOOD UREA NITROGEN 16 mg/dl (7-18); CARBON DIOXIDE 23 mmol/L (21-32); GLUCOSE 90 mg/dl (70-99); HEMATOCRIT 29.9 % (42-52); HEMOGLOBIN 9.4 g/dL (14.0-18.0); MEAN CELL VOLUME 95.5 fL (80-100); NUCLEATED RED BLOOD CELL ABS 0.05 K/uL (0-0); POTASSIUM 4.2 mmol/L (3.5-5.1); RED CELL DISTRIBUTION WIDTH SD 48.1 fL (36.4-46.3); SODIUM 137 mmol/L (136-145); WHITE BLOOD COUNT 11.23 K/uL (4.8-10.8)
== END | disposition home or self-care (01) ==
LOC: C.LABPBG 12:54
PROVIDERS: ATTEND Internal Medicine
DX: D64.9 Anemia, unspecified (principal); E87.6 Hypokalemia

== ENCOUNTER → 2018-06-01 | Day surgery (SDC) | payer OTHER ==
[2018-05-26 15:11] VITALS: Ht 165.1 cm; Wt 80.9 kg
[~2018-06-01] VITALS: Ht 165.1 cm; Wt 80.9 kg
[~2018-06-01] MED LIST changes: +LIDOCAINE HCL 2% 2 ML VIAL (20MG/ML) ONE; -LVQ750 PO; -MCRK20 PO; +PROPOFOL IV EMULSION 10 MG/ML 20 ML VIAL ONE; +SODIUM CHLORIDE 0.9% 500ML 500 ML IV ONE
--- NOTE | 2018-06-01 09:27 | Endo History and Physical ---
History & Physical Date of Service: Jun 01, 2018. Chief Complaint: Referring Physician: History of Present Illness Follow up on gastric ulcer, no abdominal pain, nausea or vomiting. Past Medical History Angioplasty/Stent, Arthritis, Pacemaker, Cancer, High Cholesterol, CABG, Heart Disease, Hypertension, Implantable Defibrillator, SC Past Surgical History Hx Cardiac Surgery: Yes (HEART CATH/1 STENT PLACED, CABG X 5 VESSELS) Hx Internal Defibrillator: Yes (SEE ABOVE) Hx Pacemaker: Yes (SEE ABOVE) Hx Abdominal Surgery: No Hx of Implantable Prosthesis: No Hx Post-Op Nausea and Vomiting: No Hx Cancer Surgery: Yes (TURP) Hx Thoracic Surgery: No Hx Orthopedic: Yes (LEFT SHOULDER SURGERY) Hx Urinary Tract Surgery: No Family History Colon CA Social History Smoking Status: Never Smoker Hx Substance Use: No Hx Alcohol Use: No Allergies Coded Allergies: ESHA Inhibitors (Verified Adverse Reaction, Mild, COUGH, 05/26/18) Current Medications Reported Home Medications Medications Dose Route/Sig Max Daily Dose Days Date Category Dose Instructions Ferrous Sulfate 325 Mg Tab 1 Tab PO BID 05/26/18 Reported Klor-Con (Potassium Chloride) 20 Meq Tabcr 20 Meq PO DAILY 05/26/18 Reported Ultram (Tramadol HCl) 50 Mg Tab 50 Mg PO Q12 PRN 05/10/18 Reported Furosemide 80 Mg Tab 80 Mg PO QAM 05/10/18 Reported Pantoprazole Sodium (Pantoprazole) 40 Mg Tab 40 Mg PO BID 05/10/18 Reported Vitamin D3 (Cholecalciferol) 2,000 Unit Tab 2,000 Inter.unit PO DAILY 10/14/17 Reported Diovan (Valsartan) 160 Mg Tab 160 Mg PO BID 12/24/15 Reported Lipitor (Atorvastatin) 40 Mg Tab 40 Mg PO HS 12/24/15 Reported Aspirin Ec (Aspirin) 81 Mg Tab 81 Mg PO QAM 02/15/15 Reported Imdur Ext Rel (Isosorbide Mononitrate) 120 Mg Tab 120 Mg PO BID 02/25/13 Reported Nitrostat (Nitroglycerin) 0.4 Mg Tab 0.4 Mg UT UD PRN 12/12/[address] ONE TABLET UNDER THE TONGUE EVERY 5 MINUTES FOR UP TO 3 DOSES IF NEEDED FOR CHEST PAIN. Coreg (Carvedilol) 25 Mg Tab 25 Mg PO BID 12/12/12 Reported Vital Signs Weight (Kilograms): 80.91 Height (Feet): 5 Height (Inches): 5 Physical Exam General Appearance: no apparent distress Respiratory/Chest: Auscultation: breath sounds normal Cardiovascular: Heart Auscultation: no murmurs Abdomen: Inspection & Palpation: soft, no tenderness, guarding & rebound Assessment and Plan Patient was explained risk, benefit and alternatives and agreed for EGD.
--- NOTE | 2018-06-01 10:07 | Discharge Instructions ---
Endoscopy Patient Instructions Date / Procedure(s) Performed Jun 01, 2018. EGD Allergy Information Coded Allergies: ESHA Inhibitors (Verified Adverse Reaction, Mild, COUGH, 05/26/18) Discharge Date / Findings Jun 01, 2018. 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 Provider Instructions Activity Restrictions - No exercising or heavy lifting for 24 hours. - Do not drink alcohol the day of the procedure. - Do not drive a car or operate machinery until the day after the procedure. - Do not make any important decisions or sign important papers in 24 hours after the procedure. Following Day: - Return to full activity which may include returning to work/school. Diet Start your diet with liquids and light foods (jello, soup, juice, toast). Then eat your usual diet if not nauseated. Treatment For Common After Affects For mild abdominal pain, bloating, or excessive gas: - Rest - Eat lightly - Lie on right side Follow-Up Information Follow-up with Dr. Sukhi Burrell as scheduled Anesthesia Information What You Should Know You have had a procedure that required some medicine to reduce anxiety and discomfort. This treatment is called moderate sedation. After receiving the treatment, you may be sleepy, but you will be able to breathe on your own. The effects of the treatment may last for several hours. Follow these instructions along with Activity/Diet recommendations noted above: * Do NOT do anything where dizziness or clumsiness would be dangerous. * Rest quietly at home today, then you can be up and about tomorrow. * Have a responsible person stay with you the rest of today. * You may have had an I.V. today. If so, you may take the dressing off later today. Recommendations Call your doctor if: * Trouble breathing * Continuous vomiting for more than 24 hours * Temperature above 101 degrees * Severe abdominal pain or bloating * Pain not relieved by pain medicine ordered * There is increased drainage or redness from any incision * A large amount of rectal bleeding greater than 2-3 tablespoons. (If you had a polyp/s removed or have hemorrhoids, a small amount of blood - from the rectum is to be expected.) * You have any unanswered questions or concerns. IN THE EVENT OF A SERIOUS EMERGENCY, GO TO THE NEAREST EMERGENCY ROOM Your discharge instructions were prepared by provider Patria Hammer. Patient Instructions Signature Page Jose L Maki Patient (or Guardian) Signature/Date: I have read and understand the instructions given to me by my caregivers. Caregiver/RN/Doctor Signature/Date: The above-named patient and/or guardian has received patient instructions on this date. + Original Patient Signature Page (only) stays with chart. Please make copy for patient.
--- NOTE | 2018-06-01 10:15 | GI REPORT ---
Patient Name: Jose L Gambino Procedure Date: 06/01/2018 9:31 AM Date of : 1930 Admit Type: Outpatient Age: 88 Gender: Male Attending MD: Patria Hammer MD Procedure: Upper GI endoscopy Providers: Patria Hammer MD Referring MD: Sukhi Burrell Md Indications: Follow-up of acute gastric ulcer Medicines: Monitored Anesthesia Care Complications: No immediate complications. Estimated Blood Loss: Estimated blood loss: none. Procedure: Pre-Anesthesia Assessment: - Prior to the procedure, a History and Physical was performed, and patient medications and allergies were reviewed. The patient is competent. The risks and benefits of the procedure and the sedation options and risks were discussed with the patient. All questions were answered and informed consent was obtained. Patient identification and proposed procedure were verified by the physician and the nurse in the procedure room. Mental Status Examination: alert and oriented. Airway Examination: normal oropharyngeal airway and neck mobility. Respiratory Examination: clear to auscultation. CV Examination: normal. ASA Grade Assessment: III - A patient with severe systemic disease. After reviewing the risks and benefits, the patient was deemed in satisfactory condition to undergo the procedure. The anesthesia plan was to use monitored anesthesia care (MAC). Immediately prior to administration of medications, the patient was re-assessed for adequacy to receive sedatives. The heart rate, respiratory rate, oxygen saturations, blood pressure, adequacy of pulmonary ventilation, and response to care were monitored throughout the procedure. The physical status of the patient was re-assessed after the procedure. After obtaining informed consent, the endoscope was passed under direct vision. Throughout the procedure, the patient's blood pressure, pulse, and oxygen saturations were monitored continuously. The scope was introduced through the mouth, and advanced to the second part of duodenum. The upper GI endoscopy was accomplished without difficulty. The patient tolerated the procedure well. Findings: Circumferential salmon-colored mucosa was present. The maximum longitudinal extent of these esophageal mucosal changes was 10 cm in length. Mucosa was biopsied with a cold forceps for histology, 4 quadrants every 2 cm. A total of 6 specimen bottles were sent to pathology. A hiatal hernia was found. The proximal extent of the gastric folds (end of tubular esophagus) was 35 cm from the incisors. The hiatal narrowing was 40 cm from the incisors. The Z-line was 25 cm from the incisors. A healed ulcer was found in the gastric antrum. Biopsies were taken with a cold forceps for histology. Biopsies were taken with a cold forceps for Helicobacter pylori testing. The duodenal bulb and second portion of the duodenum were normal. Impression: - [place]-colored mucosa classified as Arvizu's stage C9-M10 per [place] criteria. Biopsied. - Hiatal hernia. - Scar in the gastric antrum, healed ulcer. Biopsied. - Normal duodenal bulb and second portion of the duodenum. Recommendation: - Discharge patient to home. - Follow an antireflux regimen. - Await pathology results. - Use Protonix (pantoprazole) 40 mg PO daily. - Repeat upper endoscopy for surveillance based on pathology results. - Return to referring physician. Patria Hammer MD 06/01/2018 10:14:28 AM This report has been signed electronically. Note Initiated On: 06/01/2018 9:31 AM Number of Addenda: 0 I attest to the content of the Intraoperative Record and orders documented therein, exceptions below {[id number]}
[2018-06-01 10:40] VITALS: BP 169/73; PULSE 60; O2SAT 96
--- NOTE | 2018-06-01 10:52 | Anesthesiology Progress Note ---
Anesthesia Post Op Note Date & Time Jun 01, 2018 at 10:52 Vital Signs Pain Intensity: 0 Vital Signs Past 12 Hours Date Time Temp Pulse Resp B/P (MAP) Pulse Ox O2 Delivery O2 Flow Rate FiO2 06/01/18 10:40 60 20 169/73 (105) 96 Room Air 06/01/18 10:25 60 20 126/58 (80) 94 Room Air 06/01/18 10:10 36.8 60 16 102/52 (69) 95 Room Air 06/01/18 09:31 36.5 59 18 168/68 (101) 98 Room Air Notes Mental Status: alert / awake / arousable, participated in evaluation Pt Amnestic to Procedure: Yes Nausea / Vomiting: adequately controlled Pain: adequately controlled Airway Patency, RR, SpO2: stable & adequate BP & HR: stable & adequate Hydration State: stable & adequate Anesthetic Complications: no major complications apparent
== END | disposition home or self-care (01) ==
LOC: C.GI 09:04
PROVIDERS: ATTEND Student in an Organized Health Care Education/Training Program
DX: Z09 Encounter for follow-up examination after completed treatment for conditions other than malignant neoplasm (principal); K44.9 Diaphragmatic hernia without obstruction or gangrene; K29.50 Unspecified chronic gastritis without bleeding; I25.10 Atherosclerotic heart disease of native coronary artery without angina pectoris; I50.9 Heart failure, unspecified; I11.0 Hypertensive heart disease with heart failure; Z95.0 Presence of cardiac pacemaker; E78.00 Pure hypercholesterolemia, unspecified; Z95.1 Presence of aortocoronary bypass graft; I25.2 Old myocardial infarction; Z85.46 Personal history of malignant neoplasm of prostate; Z80.0 Family history of malignant neoplasm of digestive organs; Z79.82 Long term (current) use of aspirin; Z79.899 Other long term (current) drug therapy

== ENCOUNTER 2019-05-12 12:07 | Inpatient (IN) ==
[2019-05-12] MEDS ORDERED: FAMOTIDINE 20MG/5ML IV PUSH IV STA (12:44)
[2019-05-12] MEDS ORDERED: SODIUM CHLORIDE 0.9% 1000ML 500 ML IV ONE (12:44)
[2019-05-12] MEDS ORDERED: ONDANSETRON INJ 2 MG/ML 2 ML VIAL IV STA (12:44)
[2019-05-12] MEDS ORDERED: SODIUM CHLORIDE 0.9% 250 ML IV PRN (12:44)
[2019-05-12 12:56] LABS: Basophils # (auto) 0.04 K/uL (0-0.2); Basophils % (auto) 0.3 %; Eosinophils # (auto) 0.14 K/uL (0-0.5); Eosinophils % (auto) 1.2 %; Hematocrit (blood only) 30.8 % (42-52); Hemoglobin 10.4 g/dL (14.0-18.0); Immature Granulocytes # (auto) 0.06 K/uL (0.00-0.02); Immature Granulocytes % (auto) 0.5 %; Lymphocytes # (auto) 1.76 K/uL (1.2-3.4); Lymphocytes % (auto) 14.6 %; Mean Corpuscular Hgb Conc 33.8 g/dL (32-36); Mean Corpuscular Volume 91.1 fL (80-100); Mean Platelet Volume 10.2 fL (7.4-10.4); Monocytes # (auto) 0.86 K/uL (0.11-0.59); Monocytes % (auto) 7.1 %; Neutrophils # (auto) 9.18 K/uL (1.4-6.5); Neutrophils % (auto) 76.3 %; Platelet Count 216 K/uL (130-400); Red Blood Count 3.38 M/uL (4.7-6.1); White Blood Count 12.04 K/uL (4.8-10.8)
[2019-05-12] MEDS ORDERED: PANTOprazole 80 MG in DEXTROSE 5% 100 ML IV SCH (13:00)
[2019-05-12] MEDS ORDERED: PANTOprazole 40 MG in DEXTROSE 5% 100 ML IV SCH ×2 (13:00→13:15)
[2019-05-12] MEDS ORDERED: PANTOprazole 80 MG in DEXTROSE 5% 100 ML IV ONE (13:00)
[2019-05-12 13:04] LABS: Alanine Aminotransferase 15 U/L (12-78); Albumin Level 3.1 gm/dl (3.4-5.0); Aspartate Aminotransferase 10 U/L (15-37); BUN Creatinine Ratio 44.6 (10-20); Blood Urea Nitrogen 61 mg/dl (7-18); Carbon Dioxide 25 mmol/L (21-32); Chloride 113 mmol/L (98-107); Creatinine Clr Calc Pharmacy 36.2 ml/min; Est GFR (African American) 53.1; Est GFR (Non-African American) 45.8; Glucose 130 mg/dl (70-99); Magnesium 2.2 mg/dl (1.8-2.4); Potassium 3.8 mmol/L (3.5-5.1); Sodium 145 mmol/L (136-145)
[2019-05-12 13:09] LABS: Albumin Globulin Ratio 1.1 (0.9-2); Alkaline Phosphatase 91 U/L (45-117); Bilirubin,Total 0.6 mg/dl (0.2-1); Globulin 2.8 gm/dl (2.5-4.0); Total Protein 5.9 gm/dl (6.4-8.2); Troponin I < 0.015 ng/ml (0-0.045)
[2019-05-12 13:11] LABS: INR 1.2 (0.9-1.1); Partial Thromboplastin Ratio 0.9; Partial Thromboplastin Time 23.4 Seconds (21.0-31.0); Prothrombin Time 11.9 Seconds (9.0-12.0)
--- NOTE | 2019-05-12 13:13 | XRay Report ---
XR chest 1V portable HISTORY: Weakness. COMPARISON: Chest 04/22/2019. FINDINGS: No pneumothorax. No pleural effusions. The heart remains mildly enlarged. Left-sided pacema ker/defibrillator is again noted. There are poststernotomy changes. The lungs are clear. No evidence for pulmonary edema. IMPRESSION: Stable mild cardiomegaly. Electronically signed by: Gwyn Ivey M.D. 05/12/2019 1:12 PM
--- NOTE | 2019-05-12 14:26 | History & Physical Report ---
Date of Service May 12, 2019 Assessment & Plan (1) Upper GI bleed: Protonix infusion. Carafate suspension. Consult [facility] gastro[facility]ology. Clear liquid diet. IV fluids. Serial hemoglobin levels. Hold aspirin Present on Admission?: Yes (2) Acute blood loss anemia: Serial hemoglobin levels. Type and screen. Blood transfusion consent form has been signed Present on Admission?: Yes (3) Coronary artery disease: Continue medical management except for aspirin therapy and amlodipine Present on Admission?: Yes (4) Hypertension: Continue antihypertensive medications except for amlodipine Present on Admission?: Yes (5) DVT prophylaxis: Avoid heparin or Lovenox. SCDs only at this time Present on Admission?: Yes History of Present Illness Chief Complaint: Coffee-ground emesis, melena, weakness Primary Care Provider: Sukhi Burrell MD 89-year-old male who developed several episodes of coffee-ground emesis last evening then noticed melena today. He felt weak and had some diaphoresis today. He denies chest pain. He was brought to the ED for evaluation. He has Hemoccult positive melena indicative of GI bleeding, probably from an upper GI source. Hemoglobin is 10.4. Vital signs are stable. He has been started on a Protonix infusion. He has had recent upper endoscopy by [facility] gastroenterology which revealed a healed gastric ulcer. His aspirin therapy will be placed on hold. Amlodipine will also be placed on hold but his beta-bl ocker will continue due to his underlying coronary artery disease. He is alert and oriented to the time my examination. He denies any abdominal pain. Allergies Allergy/AdvReac Type Severity Reaction Status Date / Time ESHA Inhibitors AdvReac Mild COUGH Verified 04/22/19 13:25 Home Medications Home Medications Medication Instructions Recorded Confirmed Type aspirin 81 mg PO QAM 08/01/18 04/22/19 History atorvastatin 40 mg PO QPM 08/01/18 04/22/19 History carvedilol 25 mg PO BID 08/01/18 04/22/19 History furosemide 80 mg PO QAM 08/01/18 04/22/19 History isosorbide mononitrate 120 mg PO QAM 08/01/18 04/22/19 History potassium chloride 1 tab PO QAM 08/01/18 04/22/19 History valsartan 160 mg PO QAM 08/01/18 04/22/19 History amlodipine 2.5 mg PO QPM 03/01/19 04/22/19 History cholecalciferol (vitamin D3) 1,000 unit PO QAM 03/01/19 04/22/19 History [Vitamin D3] pantoprazole 40 mg PO QAM 03/01/19 04/22/19 History isosorbide mononitrate 60 mg PO PM 04/22/19 04/22/19 History nitroglycerin 0.4 mg SUBLINGUAL Q5M PRN #30 tab 04/22/19 Rx Past Med/Surg History Medical History Peripheral vascular disease (Acute) bilateral lower extremity stents Anemia CAD (coronary artery disease) CKD (chronic kidney disease) Cancer SKIN - 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 Placed 2003, replaced 2006. battery changed 2011. Myocardial Infarction 3 SILENT HEART ATTACKS Osteoarthritis Pacemaker [employer] (DR. HARDIN MONITORS DEVICE) Surgical History H/O wrist surgery LEFT TENDON REPAIR AND GANGLION REMOVAL History of cardiac cath MULTIPLE TIMES History of esophagogastroduodenoscopy (EGD) History of heart artery stent 2004 History of heart bypass surgery CABG 2003. 5 vessel bypass AT [facility] History of tonsillectomy History of vascular access device RT/LEFT LEG STENTS Hx of nasal septoplasty Hx of shoulder surgery LEFT Hx of tooth extraction Hx of transurethral resection of prostate S/P left knee arthroscopy 12/2017. LMA #5. Done at [facility] [place]. Family History Son Family history of diabetes mellitus Mother Family history of diabetes mellitus Son Family hx of colon cancer Social History Preferred Language: Estonian Communication Ability: Effective Visual Impairment: No Limitations Beliefs That Will Affect Care: None Current Living Situation: Spouse Feels Safe at Home: Yes Smoking Status: Never smoker Second Hand Exposure: No Hx Alcohol Use: No Hx Substance Use: No Review of Systems Review of Systems: Constitutional-no fever or chills ENT-no blurred vision, no double vision, no epistaxis, no sore throat Respiratory-no cough, no wheezing, no shortness of breath Cardiac-no palpitations, no chest pain, no syncope GI-see history of present illness. No gross hematochezia. No gross hematemesis -no urinary retention, no urinary incontinence, no dysuria, no hematuria Musculoskeletal-no joint pain, no muscle tenderness Skin-no bruising, no rashes, no pruritus Neuro-no isolated weakness, no paresthesia, no weakness Psych-no depression, no anxiety Physical Exam Physical Exam: General-alert and oriented x3, no fevers, no chills HEENT-head atraumatic and normocephalic, TMs intact bilaterally, pupils equal a nd reactive to light, extraocular muscles intact Neck-no lymphadenopathy or thyromegaly, trachea midline Chest-clear to auscultation percussion. No rales wheezing or rhonchi Cardiac-regular rate and rhythm, normal S1 and S2, no JVD Abdomen-normal bowel sounds, nontender, no hepatosplenomegaly Extremities-no cyanosis, clubbing, or edema Neuro-cranial nerves II through XII intact, motor and sensory function within normal limits, strength symmetrical , no focal deficits Psych-normal affect, normal mood Results & Data Vital Signs (Past 12 Hours) Vital Signs Temp Pulse Pulse Resp BP BP Pulse Ox 05/12/19 14:00 100 H 18 134/72 95 05/12/19 12:15 36.6 C 60 20 131/41 L 96 Laboratory Results 05/12/19 12:33 05/12/19 12:33 PG Care Time/CCT Total # of Minutes Spent Total Time Spent with Patient: Total time spent is greater than 50% in coordination of care (as documented) at patient's floor/unit and/or counseling patient:
--- NOTE | 2019-05-12 14:28 | Emergency Department Note ---
Entered by Dolores Rodriguez acting as a scribe for Lazaro Hanley MD History of Present Illness General Chief complaint: Illness Time Seen by Provider: 05/12/19 12:32 Source: patient History of Present Illness Onset (ago): day(s) 1 Location: buttocks Severity: similar to prior episodes (internal bleeding) Pain Consistency: + other (episode) Quality: + other (dark stool) Associated symptoms: + diaphoresis, + nausea/vomiting (+vomiting; -blood in vomit; -nausea; -abd pain; -fall) and + weakness The patient is an 89 year old male who presents to the Emergency Room with complaints of an episode of black stool that began yesterday. The patient reports that he has been bleeding internally. The patient notes he had an episode of internal bleeding a year ago that arose from an ulcer that was treated by Dr. Hammer. The patient also reports of weakness, diaphoresis, and vomiting last night, but the patient denies blood in vomit. The patient's son is a physician, and the patient states that his son told him that he most likely has an upper GI issue. The patient reports that he is on 81 mg of aspirin but denies taking Coumadin or Eliquis. The patient denies abdominal pain or recent fall. The patient reports of history of low blood pressure and 3 previous myocardial infarctions. The patient denies ever receiving a blood transfusion. Home Medications Home Medications Medication Instructions Recorded Confirmed Type aspirin 81 mg PO QAM 08/01/18 05/12/19 History atorvastatin 40 mg PO HS 08/01/18 05/12/19 History carvedilol 25 mg PO BID 08/01/18 05/12/19 History furosemide 80 mg PO QAM 08/01/18 05/12/19 History isosorbide mononitrate 120 mg PO QAM 08/01/18 05/12/19 History potassium chloride 20 meq PO QAM 08/01/18 05/12/19 History valsartan 160 mg PO QAM 08/01/18 05/12/19 History amlodipine 2.5 mg PO HS 03/01/19 05/12/19 History cholecalciferol (vitamin D3) 1,000 unit PO QAM 03/01/19 05/12/19 History [Vitamin D3] pantoprazole 40 mg PO QAM 03/01/19 05/12/19 History isosorbide mononitrate 60 mg PO PM 04/22/19 05/12/19 History nitroglycerin 0.4 mg SUBLINGUAL Q5M PRN #30 tab 04/22/19 05/12/19 Rx diphenhydramine-acetaminophen 1 tab PO HS PRN 05/12/19 05/12/19 History [Tylenol PM Extra Strength] Allergies Allergy/AdvReac Type Severity Reaction Status Date / Time ESHA Inhibitors AdvReac Mild COUGH Verified 05/12/19 14:47 Past Med/Surg History Medical History Hypertension (Chronic) Coronary artery disease (Chronic) Acute blood loss anemia (Acute) Upper GI bleed (Acute) Peripheral vascular disease (Acute) bilateral lower extremity stents Anemia CAD (coronary artery disease) CKD (chronic kidney disease) Cancer SKIN - 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 Placed 2003, replaced 2006. battery changed 2011. Myocardial Infarction 3 SILENT HEART ATTACKS Osteoarthritis Pacemaker [employer] (DR. HARDIN MONITORS DEVICE) Surgical History H/O wrist surgery LEFT TENDON REPAIR AND GANGLION REMOVAL History of cardiac cath MULTIPLE TIMES History of esophagogastroduodenoscopy (EGD) History of heart artery stent 2005 History of heart bypass surgery CABG 2003. 5 vessel bypass AT [facility] History of tonsillectomy History of vascular access device RT/LEFT LEG STENTS Hx of nasal septoplasty Hx of shoulder surgery LEFT Hx of tooth extraction Hx of transurethral resection of prostate S/P left knee arthroscopy 12/2017. LMA #5. Done at [facility]. Family History Son Family history of diabetes mellitus Mother Family history of diabetes mellitus Son Family hx of colon cancer Social History Preferred Language: Portuguese Communication Ability: Effective Visual Impairment: No Limitations Urgent Care Required: No Beliefs That Will Affect Care: None Current Living Situation: Spouse Other Information That Helps Us Care for You: No Feels Safe at Home: Yes Safety Concerns: Feels Safe At This Time Smoking Status: Never smoker Do You Dip or Chew Tobacco: No Second Hand Exposure: No Tobacco Cessation Education Requested by Patient: No Hx Alcohol Use: No Hx Substance Use: No Review of Systems See HPI for pertinent positives & negatives. and A total of 10 systems reviewed and were otherwise negative Physical Exam Vital Signs Vital Signs - 24 hr 05/12/19 12:15 05/12/19 14:00 Temperature 36.6 C Temperature Source Oral Sepsis Recent Fever Within 48 Hours No Sepsis New/Unexplained Change in Mental Status No Sepsis Action Taken by Nursing No Action Required Pulse Rate 60 Pulse Rate [Apical] 100 H Respiratory Rate 20 18 Blood Pressure 131/41 L Blood Pressure [Left Arm] 134/72 Blood Pressure Mean 71 Blood Pressure Mean [Left Arm] 92 Pulse Oximetry 96 95 Oxygen Delivery Method Room Air Room Air GENERAL: Patient is in no acute distress. HEENT: No acute trauma, normocephalic atraumatic, mucous membranes moist, no nasal congestion, no scleral icterus. NECK: No stridor, no adenopathy, no meningismus, trachea is midline. LUNGS: Clear to auscultation bilaterally, no wheeze, no rhonchi, breath sounds e qual. HEART: Without murmurs gallops or rubs, regular rate and rhythm. ABDOMEN: Soft, nontender, bowel sounds positive, no hernias, no peritonitis. EXTREMITIES: No cyanosis or edema, full range of motion of all the joints without pain or difficulty, no signs for acute trauma. NEUROLOGIC: Oriented x 3, no acute motor or sensory deficits, no focal weakness. SKIN: No rash, no jaundice, no diaphoresis. Pale. RECTAL: Black stool, heme positive. Course 1237: Past medical records reviewed. The patient was evaluated in room A10. A complete history and physical exam was performed. 1305: I discussed the patient's case with the assistant case manager. 1325: I reevaluated and updated the patient. 1332: [facility] Garcia will further evaluate the patient. Consultations Consultation #1: I discussed the [facility] Garcia will further evaluate the patient. Time: 13:32 Administered Medications Sodium Chloride (Nss 1000ml) 1,000 mls @ 75 mls/hr IV .[id number] KALYANI Stop: 06/11/19 16:12 Last Admin: 05/12/19 18:12 Dose: 75 mls/hr Documented by: [id number] Pantoprazole Sodium 40 mg/ (Dextrose) 100 mls @ 20 mls/hr IV Q5H KALYANI Stop: 06/11/19 18:29 Last Admin: 05/12/19 18:34 Dose: 20 mls/hr Documented by: [id number] Sucralfate (Carafate) 1 gm PO QID KALYANI Stop: 06/11/19 16:59 Last Admin: 05/12/19 18:12 Dose: 1 gm Documented by: [id number] Discontinued Medications Famotidine (Pepcid 20mg Iv Push) 20 mg IV ONE STA Stop: 05/12/19 12:45 Last Admin: 05/12/19 13:02 Dose: 20 mg Documented by: [id number] Sodium Chloride (Nss 1000ml) 500 mls @ 999 mls/hr IV .Q31M ONE Stop: 05/12/19 13:14 Last Infusion: 05/12/19 13:40 Dose: 0 mls/hr Documented by: [id number] Admin: 05/12/19 13:02 Dose: 999 mls/hr Documented by: [id number] Pantoprazole Sodium 80 mg/ (Dextrose) 120 mls @ 480 mls/hr IV NOW ONE Stop: 05/12/19 13:14 Last Infusion: 05/12/19 18:26 Dose: 0 mls/hr Documented by: [id number] Admin: 05/12/19 13:27 Dose: 480 mls/hr Documented by: [id number] Pantoprazole Sodium 40 mg/ (Dextrose) 100 mls @ 20 mls/hr IV Q5H KALYANI Stop: 05/12/19 18:14 Last Infusion: 05/12/19 18:26 Dose: 0 mls/hr Documented by: [id number] Admin: 05/12/19 13:26 Dose: 20 mls/hr Documented by: [id number] Ondansetron HCl (Zofran) 4 mg IV NOW STA Stop: 05/12/19 12:45 Last Admin: 05/12/19 13:02 Dose: 4 mg Documented by: [id number] Medical Decision Making Differential Diagnosis Differential diagnoses include ulcer, anemia, upper GI bleed, lower GI bleed, electrolyte imbalance, coagulopathy, cardiac ischemia. Medical Records Attestation: I reviewed the patient's medical records. Home Medications Current Medication List: was personally reviewed by me Laboratory Data Attestation: I reviewed the patient's lab results. Result diagrams: 05/12/19 18:07 05/12/19 12:33 Lab Results 05/12/19 05/12/19 05/12/19 Range/Units 12:33 12:33 12:33 WBC 12.04 H (4.8-10.8) K/uL RBC 3.38 L (4.7-6.1) M/uL Hgb 10.4 L (14.0-18.0) g/dL Hct 30.8 L (42-52) % MCV 91.1 (80-100) fL MCH 30.8 (25-34) pg MCHC 33.8 (32-36) g/dL RDW Std Deviation 50.0 H (36.4-46.3) fL RDW Coeff of Yari 15.0 H (11.5-14.5) % Plt Count 216 (130-400) K/uL MPV 10.2 (7.4-10.4) fL Immature Gran % (Auto) 0.5 % Neut % (Auto) 76.3 % Lymph % (Auto) 14.6 % [place] % (Auto) 7.1 % Eos % (Auto) 1.2 % Baso % (Auto) 0.3 % Immature Gran # (Auto) 0.06 H (0.00-0.02) K/uL Neut # (Auto) 9.18 H (1.4-6.5) K/uL Lymph # (Auto) 1.76 (1.2-3.4) K/uL [place] # (Auto) 0.86 H (0.11-0.59) K/uL Eos # (Auto) 0.14 (0-0.5) K/uL Baso # (Auto) 0.04 (0-0.2) K/uL PT 11.9 (9.0-12.0) Seconds INR 1.2 H (0.9-1.1) APTT 23.4 (21.0-31.0) Seconds PTT Ratio 0.9 Sodium 145 (136-145) mmol/L Potassium 3.8 (3.5-5.1) mmol/L Chloride 113 H (98-107) mmol/L Carbon Dioxide 25 (21-32) mmol/L Anion Gap 7.0 (3-11) BUN 61 H (7-18) mg/dl Creatinine 1.36 (0.6-1.4) mg/dl Est Cr Clr Drug Dosing 36.2 ml/min Est GFR ( Amer) 53.1 Est GFR (Non-Af Amer) 45.8 BUN/Creatinine Ratio 44.6 H (10-20) Glucose 130 H (70-99) mg/dl Calcium 9.0 (8.5-10.1) mg/dl Magnesium 2.2 (1.8-2.4) mg/dl Total Bilirubin 0.6 (0.2-1) mg/dl AST 10 L (15-37) U/L ALT 15 (12-78) U/L Alkaline Phosphatase 91 (45-117) U/L Troponin I < 0.015 (0-0.045) ng/ml Total Protein 5.9 L (6.4-8.2) gm/dl Albumin 3.1 L (3.4-5.0) gm/dl Globulin 2.8 (2.5-4.0) gm/dl Albumin/Globulin Ratio 1.1 (0.9-2) Blood Type Antibody Screen Crossmatch 05/12/19 Range/Units 12:56 WBC (4.8-10.8) K/uL RBC (4.7-6.1) M/uL Hgb (14.0-18.0) g/dL Hct (42-52) % MCV (80-100) fL MCH (25-34) pg MCHC (32-36) g/dL RDW Std Deviation (36.4-46.3) fL RDW Coeff of Yari (11.5-14.5) % Plt Count (130-400) K/uL MPV (7.4-10.4) fL Immature Gran % (Auto) % Neut % (Auto) % Lymph % (Auto) % [place] % (Auto) % Eos % (Auto) % Baso % (Auto) % Immature Gran # (Auto) (0.00-0.02) K/uL Neut # (Auto) (1.4-6.5) K/uL Lymph # (Auto) (1.2-3.4) K/uL [place] # (Auto) (0.11-0.59) K/uL Eos # (Auto) (0-0.5) K/uL Baso # (Auto) (0-0.2) K/uL PT (9.0-12.0) Seconds INR (0.9-1.1) APTT (21.0-31.0) Seconds PTT Ratio Sodium (136-145) mmol/L Potassium (3.5-5.1) mmol/L Chloride (98-107) mmol/L Carbon Dioxide (21-32) mmol/L Anion Gap (3-11) BUN (7-18) mg/dl Creatinine (0.6-1.4) mg/dl Est Cr Clr Drug Dosing ml/min Est GFR ( Amer) Est GFR (Non-Af Amer) BUN/Creatinine Ratio (10-20) Glucose (70-99) mg/dl Calcium (8.5-10.1) mg/dl Magnesium (1.8-2.4) mg/dl Total Bilirubin (0.2-1) mg/dl AST (15-37) U/L ALT (12-78) U/L Alkaline Phosphatase (45-117) U/L Troponin I (0-0.045) ng/ml Total Protein (6.4-8.2) gm/dl Albumin (3.4-5.0) gm/dl Globulin (2.5-4.0) gm/dl Albumin/Globulin Ratio (0.9-2) Blood Type A Positive Antibody Screen NEGATIVE Crossmatch See Detail Imaging Data Radiologist's Impression: Radiology results as stated below per my review and the radiologist's interpretation: XR chest 1V portable HISTORY: Weakness. COMPARISON: Chest 04/22/2019. FINDINGS: No pneumothorax. No pleural effusions. The heart remains mildly enlarged. Left-sided pacemaker/defibrillator is again noted. There are poststernotomy changes. The lungs are clear. No evidence for pulmonary edema. IMPRESSION: Stable mild cardiomegaly. Electronically signed by: Gwyn Ivey M.D. 05/12/2019 1:12 PM ECG Data Attestation: I personally reviewed and interpreted this ECG as follows: Indication: vomiting Rate (beats per minute): 63 Findings: + other (AV pacemaker); no PVC and no ST elevation Blood Pressure Blood Pressure Findings: Elevated blood pressure Blood Pressure Disposition: further management by hospitalist FLOWER Narrative There is a mild leukocytosis at 12,000, this could be consistent with infection or just the stress of his current situation. The patient is anemic with a hemoglobin of 10, this is a drop of about 3 points for him. Platelet count is normal. No concerning coagulopathy. BUN is elevated consistent with a potential upper GI bleed. No kidney failure. No elevation to the liver enzymes. EKG shows a functioning pacemaker, no acute ischemia. Cardiac enzyme testing x1 is not consistent with acute cardiac injury. Chest film does not show pneumonia or free air, no CHF. Blood type returned A positive. On exam, the patient seemed slightly pale, he was not toxic. Stool was black and heme positive by my testing. The patient received IV saline, 500 cc. He received a bolus of IV Protonix and was placed on a Protonix drip. He received IV Zofran for nausea, he was given IV Pepcid. The patient is currently stable but will require a hospital stay. He may require a blood transfusion if his hemoglobin continues to drop. GI will be consulted. I did speak to the patient and case management. The on-call hospitalist was consulted. I do suspect an upper GI bleed given the findings and history. Impression & Plan GI bleed, Heme positive stool, Anemia, Near syncope Critical Care Time Critical Care Time: Yes Total Critical Care Time: 35 I have personally spent 35 minutes of critical care time in the direct management of this patient. This includes bedside care, interpretation of js gnostic studies, and testing, discussion with consultants, patient, and family members, and other required patient management activities. This 35 minutes is in excess of all separately billable procedures. Discharge Plan Visit Data *Final* Discharge Date/Time: 05/12/19 15:45 Chief Complaint: Illness ED Provider: Lazaro Hanley Discharge Problem: GI bleed, Heme positive stool, Anemia, Near syncope Patient Disposition: Admitted As Inpatient Discharge Instructions Interventions: ED Discharge Assessment Last Done: 05/12/19 15:45 Discharge Problem: GI bleed Qualifiers: GI bleed type/associated pathology: unspecified gastrointestinal hemorrhage type Qualified Code(s): K92.2 - Gastrointestinal hemorrhage, unspecified Anemia Qualifiers: Anemia type: unspecified type Qualified Code(s): D64.9 - Anemia, unspecified The scribe's documentation has been prepared under my direction and personally reviewed by me in its entirety. I confirm that the note above accurately reflects all work, treatment, procedures, and medical decision making performed by me.
[2019-05-12] MEDS ORDERED: ONDANSETRON INJ 2 MG/ML 2 ML VIAL IV PRN (16:13)
[2019-05-12] MEDS ORDERED: ACETAMINOPHEN 325 MG TAB PO PRN (16:13)
[2019-05-12] MEDS ORDERED: NITROGLYCERIN SL 0.4 MG/TAB TAB SL PRN (16:13)
[2019-05-12] MEDS ORDERED: ALUMINUM/MAGNESIUM SUSP 30 ML UDC PO PRN (16:13)
--- NOTE | 2019-05-12 16:16 | Gastrointestinal Consultation ---
Date of Consultation May 12, 2019 History of Present Illness Reason for Consultation: GI Bleed Requesting Physician: Dr. Garcia Attending Physician: Brayden Garcia MD History of Present Illness Ms. Jose L Gambino is an 89 yr old male pt of Dr. Burrell with a hx of CAD/CHF, CKD, PUD< Prostate Cancer presented to the ED today for melena, since yesterday also with nausea and vomiting coffee ground emesis. On arrival, Hb 10.4 (down from 13 a few weeks ago), BUN 61 (up from 22 a few weeks ago). WBC is 12 and Cr1.36. The pt is admitted to 277 and is hemodynamically stable without hypotension or tchycardia. Allergies Allergy/AdvReac Type Severity Reaction Status Date / Time ESHA Inhibitors AdvReac Mild COUGH Verified 05/12/19 14:47 Home Medications Home Medications Medication Instructions Recorded Confirmed Type aspirin 81 mg PO QAM 08/01/18 05/12/19 History atorvastatin 40 mg PO HS 08/01/18 05/12/19 History carvedilol 25 mg PO BID 08/01/18 05/12/19 History furosemide 80 mg PO QAM 08/01/18 05/12/19 History isosorbide mononitrate 120 mg PO QAM 08/01/18 05/12/19 History potassium chloride 20 meq PO QAM 08/01/18 05/12/19 History valsartan 160 mg PO QAM 08/01/18 05/12/19 History amlodipine 2.5 mg PO HS 03/01/19 05/12/19 History cholecalciferol (vitamin D3) 1,000 unit PO QAM 03/01/19 05/12/19 History [Vitamin D3] pantoprazole 40 mg PO QAM 03/01/19 05/12/19 History isosorbide mononitrate 60 mg PO PM 04/22/19 05/12/19 History nitroglycerin 0.4 mg SUBLINGUAL Q5M PRN #30 tab 04/22/19 05/12/19 Rx diphenhydramine-acetaminophen 1 tab PO HS PRN 05/12/19 05/12/19 History [Tylenol PM Extra Strength] Patient History Medical History Hypertension (Chronic) Coronary artery disease (Chronic) Acute blood loss anemia (Acute) Upper GI bleed (Acute) Peripheral vascular disease (Acute) bilateral lower extremity stents Anemia CAD (coronary artery disease) CKD (chronic kidney disease) Cancer SKIN - 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 Placed 2003, replaced 2006. battery changed 2011. Myocardial Infarction 3 SILENT HEART ATTACKS Osteoarthritis Pacemaker [employer] [place] (DR. HARDIN MONITORS DEVICE) Surgical History H/O wrist surgery LEFT TENDON REPAIR AND GANGLION REMOVAL History of cardiac cath MULTIPLE TIMES History of esophagogastroduodenoscopy (EGD) History of heart artery stent 2005 History of heart bypass surgery CABG 2003. 5 vessel bypass AT [facility] History of tonsillectomy History of vascular access device RT/LEFT LEG STENTS Hx of nasal septoplasty Hx of shoulder surgery LEFT Hx of tooth extraction Hx of transurethral resection of prostate S/P left knee arthroscopy 12/2017. LMA #5. Done at [facility] [place]. Family History Son Family history of diabetes mellitus Mother Family history of diabetes mellitus Son Family hx of colon cancer Social History Preferred Language: R[place] Communication Ability: Effective Visual Impairment: No Limitations Beliefs That Will Affect Care: None Current Living Situation: Spouse Feels Safe at Home: Yes Smoking Status: Never smoker Second Hand Exposure: No Hx Alcohol Use: No Hx Substance Use: No Results & Data Vital Signs (Past 12 Hours) Vital Signs Temp Pulse Pulse Resp BP BP Pulse Ox 05/12/19 15:19 68 18 130/48 L 96 05/12/19 14:00 100 H 18 134/72 95 05/12/19 12:15 36.6 C 60 20 131/41 L 96
--- NOTE | 2019-05-12 16:48 | Gastrointestinal Consultation ---
Date of Consultation May 12, 2019 Assessment & Plan (1) GI bleed: EGD tomorrow by Dr. Black. Agree with PPI drip. Appreciate hospitalists management of fluid resusitation, transfuse if indicated. Present on Admission?: Yes Supervising Physician Co-Signing Physician Notes I saw and evaluated the patient. He presents with melena that began this morning. He does not recall having a coffee-ground emesis episode yesterday evening. His history is notable for a partially intrathoracic stomach, long segment Arvizu's esophagus and prior peptic ulcer disease. He notes that he has been taking Aleve for the past few weeks and did discontinue his proton pump inhibitor. Physical examination No obvious distress Pale appearing No epigastric tenderness Impression: Patient likely with an upper GI bleed from recurrent peptic ulcer disease or perhaps Mitchel's erosions from his partially intrathoracic stomach. I would recommend that the patient begin a proton pump inhibitor drip and we will make arrangements for upper endoscopy on Wednesday morning per Recommendations N.p.o. Protonix drip Avoid use of onset NSAIDs please Upper endoscopy arranged for Wednesday History of Present Illness Reason for Consultation: UGI bleed Requesting Physician: Dr. Garcia Attending Physician: Brayden Garcia MD History of Present Illness Mr. Jose L Gambino is an 89 yr old male pt of Dr. Burrell with a hx of CAD, CHF, CKD, HTN, prostate cancer, PUD. He experienced nausea, vomiting and lower chest/epigastric pressure last night, vomiting brown liquid with bits of food several times. This morning, between 8 and 9:30 AM, he passed several, large volume liquid BMs. Around 10:30 this morning, he felt weak, dizzy and sweaty. He was brought to the ED by ambulance. He previously underwent EGD in february 2018 with findings of a gastric ucler with a visible vessel. Most recent EGD was February 2019 with gastric scar, and Arvizu's. On arrival Hb 10, down from 13 a few weeks ago, BUN 61 (22 a few weeks ago). He is awake, alert, oriented, free of pain and most recent BM was prior to admission. He remains hemodynamically stable. Allergies Allergy/AdvReac Type Severity Reaction Status Date / Time ESHA Inhibitors AdvReac Mild COUGH Verified 05/12/19 14:47 Home Medications Home Medications Medication Instructions Recorded Confirmed Type aspirin 81 mg PO QAM 08/01/18 05/12/19 History atorvastatin 40 mg PO HS 08/01/18 05/12/19 History carvedilol 25 mg PO BID 08/01/18 05/12/19 History furosemide 80 mg PO QAM 08/01/18 05/12/19 History isosorbide mononitrate 120 mg PO QAM 08/01/18 05/12/19 History potassium chloride 20 meq PO QAM 08/01/18 05/12/19 History valsartan 160 mg PO QAM 08/01/18 05/12/19 History amlodipine 2.5 mg PO HS 03/01/19 05/12/19 History cholecalciferol (vitamin D3) 1,000 unit PO QAM 03/01/19 05/12/19 History [Vitamin D3] pantoprazole 40 mg PO QAM 03/01/19 05/12/19 History isosorbide mononitrate 60 mg PO PM 04/22/19 05/12/19 History nitroglycerin 0.4 mg SUBLINGUAL Q5M PRN #30 tab 04/22/19 05/12/19 Rx diphenhydramine-acetaminophen 1 tab PO HS PRN 05/12/19 05/12/19 History [Tylenol PM Extra Strength] Patient History Medical History Hypertension (Chronic) Coronary artery disease (Chronic) Acute blood loss anemia (Acute) Upper GI bleed (Acute) Peripheral vascular disease (Acute) bilateral lower extremity stents Anemia CAD (coronary artery disease) CKD (chronic kidney disease) Cancer SKIN - 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 Placed 2003, replaced 2006. battery changed 2011. Myocardial Infarction 3 SILENT HEART ATTACKS Osteoarthritis Pacemaker [employer] (DR. HARDIN MONITORS DEVICE) Surgical History H/O wrist surgery LEFT TENDON REPAIR AND GANGLION REMOVAL History of cardiac cath MULTIPLE TIMES History of esophagogastroduodenoscopy (EGD) History of heart artery stent 2005 History of heart bypass surgery CABG 2003. 5 vessel bypass AT [facility] History of tonsillectomy History of vascular access device RT/LEFT LEG STENTS Hx of nasal septoplasty Hx of shoulder surgery LEFT Hx of tooth extraction Hx of transurethral resection of prostate S/P left knee arthroscopy 12/2017. LMA #5. Done at [facility]. Family History Son Family history of diabetes mellitus Mother Family history of diabetes mellitus Son Family hx of colon cancer Social History Preferred Language: Tajik Communication Ability: Effective Visual Impairment: No Limitations Alum Mixer Required: No Beliefs That Will Affect Care: None Current Living Situation: Spouse Other Information That Helps Us Care for You: No Feels Safe at Home: Yes Safety Concerns: Feels Safe At This Time Smoking Status: Never smoker Do You Dip or Chew Tobacco: No Second Hand Exposure: No Tobacco Cessation Education Requested by Patient: No Hx Alcohol Use: No Hx Substance Use: No Review of Systems Review of Systems: ROS: Gen: Brief period of weakness, dizziness, sweating but no fevers, no weight loss Eyes: No eye redness, or pain, no recent vision changes Resp: No SOB, no cough Cardio: + chest pressure and upper abdomen pressure, "like a band," No palpitations/no irregular beats GI: + upper abdomen pain, + no nausea/vomiting : Denies pain on urination Skin: No jaundice, itching or new rashes Physical Exam Constitutional: WD/WN, vitals as above Eyes: PERRL, conjunctivae normal, anicteric sclerae ENMT: external ear and nose normal, oropharynx normal Neck: trachea midline, no thyromegaly Respiratory: normal respiratory effort, lungs clear to auscultation Cardiovascular: RRR, no murmur, no edema Gastrointestinal (Abdomen): normal bowel sounds, soft, nontender, no hepatosplenomegaly Skin: no rashes, warm and dry Neurologic: PERRL, EOMI, accommodation nl, no face palsy, no dysarthria Psychiatric: A+Ox3, euthymic affect Lymphatic: no cervical or axillary lymphadenopathy Results & Data Vital Signs (Past 12 Hours) Vital Signs Temp Pulse Pulse Resp BP BP Pulse Ox 05/12/19 15:19 68 18 130/48 L 96 05/12/19 14:00 100 H 18 134/72 95 05/12/19 12:15 36.6 C 60 20 131/41 L 96 Laboratory Results WBC 12, Hb 10.4, Hct 30.8,BUN 61, Cr 1.36, LFTs are normal. Diagnostic Findings CXR: Stable mild cardiomegaly. Medications Administered Protonix drip ordered. (1) GI bleed GI bleed type/associated pathology: unspecified gastrointestinal hemorrhage type Qualified Code(s): K92.2 - Gastrointestinal hemorrhage, unspecified
[2019-05-12] MEDS: SUCRALFATE 1 GM/10 ML UDC PO SCH ×2 (18:12→20:36)
[2019-05-12] MEDS: SODIUM CHLORIDE 0.9% 1000ML 1,000 ML IV SCH (18:12)
[2019-05-12] MEDS: PANTOprazole 40 MG in DEXTROSE 5% 100 ML IV SCH ×2 (18:34→23:44)
[2019-05-12] MEDS: ATORVASTATIN 40 MG TAB PO SCH (20:36)
[2019-05-12] MEDS: ISOSORBIDE MONO EXTENDED REL 60 MG TABCR PO SCH (20:36)
[2019-05-12] MEDS: CARVEDILOL 25 MG TAB PO SCH (20:36)
[2019-05-13] MEDS: PANTOprazole 40 MG in DEXTROSE 5% 100 ML IV SCH ×2 (04:30→09:16)
[2019-05-13] MEDS ORDERED: ONDANSETRON INJ 2 MG/ML 2 ML VIAL ONE (07:22)
[2019-05-13] MEDS ORDERED: ETOMIDATE 2 MG/ML 20 ML VIAL IV ONE (07:22)
[2019-05-13] MEDS ORDERED: LIDOCAINE HCL 2% 2 ML VIAL/AMP(20MG/ML) INFIL ONE (07:22)
[2019-05-13] MEDS ORDERED: PROPOFOL IV EMULSION 10 MG/ML 20 ML VIAL IV ONE (07:22)
[2019-05-13] MEDS: SODIUM CHLORIDE 0.9% 1000ML 1,000 ML IV SCH ×2 (07:48→18:04)
--- NOTE | 2019-05-13 07:50 | Hospitalist Progress Note ---
Date of Service May 13, 2019 Assessment & Plan (1) Upper GI bleed: Protonix infusion. Carafate suspension. Consult gastroenterolog performed EGD 05/13, found to have a clean-based ulcer no stigmata of current bleeding, Mitchel lesions associate with hiatal hernia and is present. recommending twice daily PPI, hold aspirin advance diet (2) Acute blood loss anemia: 10.4-8.3 he has however been stable in the mid 8 range we will hold on transfusion at this point time unless he is complaints of endorgan issues (3) Coronary artery disease: Continue coreg, isosorbide, valsartan and hold aspirin therapy and amlodipine (4) Hypertension: Continue antihypertensive medications except for amlodipine (5) DVT prophylaxis: Avoid heparin or Lovenox. SCDs only at this time Subjective This was seen post procedure he is doing well his is present the bedside we discussed the fact that he be prudent for him to stay another day to make sure his blood count is stable although he did have a clean-based ulcer and there is a lower likelihood of rebleeding with this finding. Patient is in agreement to stay we will place him on clear liquid diet and advance as tolerated Review of Systems Review of Systems: ROS: well nourished well developed. No double vision blurry vision No problems with speech or swallowing No palpitations, chest pain or pressure No Wheezing or breathing issues No abdominal pain nausea vomiting he said no bowel movements since this morning No burning urine urine frequency or changes in color No focal joint pain or muscle pain No skin rashes or oral lesions No unusual bruising or bleeding No focused back pain or numbness or loss of strength No changes in memory or confusion Physical Exam Physical Exam: The patient appeared well nourished and normally developed. Vital signs as documented. Head exam is unremarkable. normocephalic, atraumatic Neck is without jugular venous distension, thyromegaly, or lymphademopathy Lungs are clear to auscultation and percussion. Cardiac exam reveals Rhythm is regular. First and second heart sounds normal. Abdominal exam reveals normal bowel sounds, soft and nontender Extremities are nonedematous and both pedal pulses are present Neurologic exam is A&Ox3, no focal deficits, strength is equal bilateral Psychologically seems neither anxious or depressed Skin is warm Dry without bruises or lesions Results & Data Vital Signs (Past 12 Hours) Vital Signs Temp Pulse Resp BP Pulse Ox 05/13/19 03:00 36.5 C 66 20 123/66 98 05/12/19 23:00 36.4 C L 68 20 122/57 L 97 PG Care Time/CCT Total # of Minutes Spent Total Time Spent with Patient: Total time spent is greater than 50% in coordination of care (as documented) at patient's floor/unit and/or counseling patient:
--- NOTE | 2019-05-13 07:52 | Anesthesiology Consultation ---
Date of Service May 13, 2019 Assessment & Plan (1) Encounter for pre-operative examination: Chart Review Chart Review: Acceptable Risk for Surgery Consults Requested none ASA ASA4 Proposed Anesthesia Anesthesia Type: MAC Risk / Benefits Reviewed With: PT / POA / Parent / Guardian, Accepts Plan and Informed Consent Obtained History Surgery Operation Date: 05/13/19 08:40 Proposed Procedures p Esophagogastroduodenoscopy Dr Blcak - Devin Black, DO Height/Weight Height: 5 ft 5 in Weight: 81.6 kg Allergies Allergy/AdvReac Type Severity Reaction Status Date / Time ESHA Inhibitors AdvReac Mild COUGH Verified 05/12/19 14:47 Medications Home Medications Medication Instructions Recorded Confirmed Last Taken aspirin 81 mg PO QAM 08/01/18 05/12/19 05/12/19 atorvastatin 40 mg PO HS 08/01/18 05/12/19 05/11/19 carvedilol 25 mg PO BID 08/01/18 05/12/19 05/12/19 furosemide 80 mg PO QAM 08/01/18 05/12/19 05/12/19 isosorbide mononitrate 120 mg PO QAM 08/01/18 05/12/19 05/12/19 potassium chloride 20 meq PO QAM 08/01/18 05/12/19 05/12/19 valsartan 160 mg PO QAM 08/01/18 05/12/19 05/12/19 amlodipine 2.5 mg PO HS 03/01/19 05/12/19 05/11/19 cholecalciferol (vitamin D3) 1,000 unit PO QAM 03/01/19 05/12/19 05/12/19 [Vitamin D3] pantoprazole 40 mg PO QAM 03/01/19 05/12/19 04/22/19 isosorbide mononitrate 60 mg PO PM 04/22/19 05/12/19 05/11/19 nitroglycerin 0.4 mg SUBLINGUAL Q5M PRN #30 tab 04/22/19 05/12/19 Unknown diphenhydramine-acetaminophen 1 tab PO HS PRN 05/12/19 05/12/19 05/11/19 [Tylenol PM Extra Strength] 2 tabs Active Medications Generic Name Dose Route Start Last Admin Trade Name Freq PRN Reason Stop Dose Admin Atorvastatin Calcium 40 mg 05/12/19 21:00 05/12/19 20:36 Lipitor PO 06/11/19 20:59 40 mg QPM KALYANI Administration Carvedilol 25 mg 05/12/19 21:00 05/12/19 20:36 Coreg PO 06/11/19 20:59 25 mg BID KALYANI Administration Sodium Chloride 1,000 mls @ 75 mls/hr 05/12/19 16:13 05/13/19 07:48 Nss 1000ml IV 06/11/19 16:12 75 mls/hr .[id number] KALYANI Administration Pantoprazole Sodium 40 mg/ 100 mls @ 20 mls/hr 05/12/19 18:30 05/13/19 04:30 Dextrose IV 06/11/19 18:29 20 mls/hr Q5H KALYANI Administration Isosorbide Mononitrate 60 mg 05/12/19 21:00 05/12/19 20:36 Imdur Extended Rel PO 06/11/19 20:59 60 mg PM KALYANI Administration Sucralfate 1 gm 05/12/19 17:00 05/12/19 20:36 Carafate PO 06/11/19 16:59 1 gm QID KALYANI Administration NPO Date Last Intake of Fluids: 05/12/19 Time Last Intake of Fluids: 21:00 Date Last Intake of Solids: 05/12/19 Time Last Intake of Solids: 21:00 Past Medical History Medical History Hypertension (Chronic) Coronary artery disease (Chronic) Acute blood loss anemia (Acute) Upper GI bleed (Acute) Peripheral vascular disease (Acute) bilateral lower extremity stents Anemia CAD (coronary artery disease) CKD (chronic kidney disease) Cancer SKIN - 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 Placed 2003, replaced 2006. battery changed 2011. Myocardial Infarction 3 SILENT HEART ATTACKS Osteoarthritis Pacemaker [employer] (DR. HARDIN MONITORS DEVICE) Exercise / Class Metabolic Activity III < 4 Walking/Shop/Light housework Past Family History Family History Son Family history of diabetes mellitus Mother Family history of diabetes mellitus Son Family hx of colon cancer Past Surgical History Surgical History H/O wrist surgery LEFT TENDON REPAIR AND GANGLION REMOVAL History of cardiac cath MULTIPLE TIMES History of esophagogastroduodenoscopy (EGD) History of heart artery stent 2004 History of heart bypass surgery CABG 2003. 5 vessel bypass AT [facility] History of tonsillectomy History of vascular access device RT/LEFT LEG STENTS Hx of nasal septoplasty Hx of shoulder surgery LEFT Hx of tooth extraction Hx of transurethral resection of prostate S/P left knee arthroscopy 12/2017. LMA #5. Done at [facility]. Past Anesthesia History No Hx of Anesthesia Complications and No Family Hx of Anesthesia Complications History of PONV No Hx of PONV and No Hx of Motion Sickness Social History Smoking Status: Never smoker Do You Dip or Chew Tobacco: No Hx Alcohol Use: No Hx Substance Use: No substance use type: does not use Physical Exam Vital Signs Last Vital Signs Temp 98.2 F 05/13/19 07:49 Pulse 61 05/13/19 07:49 Resp 16 05/13/19 07:49 BP 145/64 H 05/13/19 07:49 Pulse Ox 95 05/13/19 07:49 ENMT Mouth: + chipped teeth Thyromental Distance: > or= 3.5 Finger Breadths Mallampati Class: II Neck normal visual inspection Respiratory normal respiratory effort Auscultation: lungs clear to auscultation bilaterally Cardiovascular Rate/Rhythm: regular rate and regular rhythm Testing Laboratory Results 05/13/19 06:53 05/12/19 12:33 PT 11.9 Seconds (9.0-12.0) 05/12/19 12:33 INR 1.2 (0.9-1.1) H 05/12/19 12:33 APTT 23.4 Seconds (21.0-31.0) 05/12/19 12:33 Blood Type A Positive 05/12/19 12:56 Antibody Screen NEGATIVE 05/12/19 12:56 Electrocardiogram Date: 05/12/19 AV dual-paced rhythm, rate 63 bpm Abnormal ECG When compared with ECG of 22-APR-2019 12:30, Vent. rate has increased BY 3 BPM Confirmed by Sukhi Morris ([id number]) on 05/12/2019 4:59:39 PM Chest X-Ray Date: 05/12/19 IMPRESSION: Stable mild cardiomegaly.
[2019-05-13] MEDS ORDERED: ePHEDrine sulfate 50 MG/ML AMP IV PRN (07:54)
[2019-05-13] MEDS ORDERED: ATROPINE SULFATE 0.1 MG/ML 10ML SYR IV PRN (07:54)
--- NOTE | 2019-05-13 08:13 | Gastroenterology Progress Note ---
Date of Service May 13, 2019 Assessment & Plan (1) GI bleed: (2) Acute blood loss anemia: (3) Melena: Proceed with EGD Continue current therapy Subjective Patient without melena, hematochezia or hematemesis overnight. He does have a history of gastric ulcer in February 2019. He denies any chest pain, SOB, abdominal pain, nausea or vomiting, and has no further complaints. Physical Exam 2 Constitutional: WD/WN, vitals as above Respiratory: normal respiratory effort, lungs clear to auscultation Cardiovascular: RRR, no murmur, no edema Gastrointestinal (Abdomen): normal bowel sounds, soft, nontender, no hepatosplenomegaly Results & Data Vital Signs (Past 12 Hours) Vital Signs Temp Pulse Resp BP Pulse Ox 05/13/19 07:49 36.8 C 61 16 145/64 H 95 05/13/19 03:00 36.5 C 66 20 123/66 98 05/12/19 23:00 36.4 C L 68 20 122/57 L 97 (1) GI bleed GI bleed type/associated pathology: unspecified gastrointestinal hemorrhage type Qualified Code(s): K92.2 - Gastrointestinal hemorrhage, unspecified
--- NOTE | 2019-05-13 08:36 | GI REPORT ---
Patient Name: Jose L Gambino Procedure Date: 05/13/2019 8:14 AM Date of : 1930 Admit Type: Inpatient Age: 89 Gender: Male Attending MD: Devin Black DO Procedure: Upper GI endoscopy Providers: Devin Black DO Referring MD: Jimbo Christian Indications: Acute post hemorrhagic anemia, Melena Medicines: Monitored Anesthesia Care Complications: No immediate complications. Estimated Blood Loss: Estimated blood loss: none. Procedure: Pre-Anesthesia Assessment: - Prior to the procedure, a History and Physical was performed, and patient medications and allergies were reviewed. The patient's tolerance of previous anesthesia was also reviewed. The risks and benefits of the procedure and the sedation options and risks were discussed with the patient. All questions were answered, and informed consent was obtained. Prior Anticoagulants: The patient has taken aspirin, last dose was 1 day prior to procedure. ASA Grade Assessment: IV - A patient with severe systemic disease that is a constant threat to life. After reviewing the risks and benefits, the patient was deemed in satisfactory condition to undergo the procedure. After obtaining informed consent, the endoscope was passed under direct vision. Throughout the procedure, the patient's blood pressure, pulse, and oxygen saturations were monitored continuously. The Endoscope was introduced through the mouth, and advanced to the second part of duodenum. The upper GI endoscopy was accomplished without difficulty. The patient tolerated the procedure well. Findings: There were esophageal mucosal changes consistent with long-segment Arvizu's esophagus present in the middle third of the esophagus and in the lower third of the esophagus. The maximum longitudinal extent of these mucosal changes was 8 cm in length. A large hiatal hernia with multiple Mitchel ulcers was found. One non-bleeding cratered gastric ulcer with no stigmata of bleeding was found in the gastric antrum. The lesion was 10 mm in largest dimension. The examined duodenum was normal. Impression: - Esophageal mucosal changes consistent with long-segment Arvizu's esophagus. - Large hiatal hernia with multiple Mitchel ulcers. - Non-bleeding gastric ulcer with no stigmata of bleeding. - Normal examined duodenum. - No specimens collected. Recommendation: - Return patient to hospital [facility] for ongoing care. - Clear liquid diet. - Use Protonix (pantoprazole) 40 mg PO BID. Devin Black DO 05/13/2019 8:35:24 AM This report has been signed electronically. Note Initiated On: 05/13/2019 8:14 AM Number of Addenda: 0 I attest to the content of the Intraoperative Record and orders documented therein, exceptions below {[id number]}
--- NOTE | 2019-05-13 08:48 | Anesthesiology Progress Note ---
Date of Service May 13, 2019 Anesthesia Post Procedure Vital Signs Vital Signs: Temp Pulse Pulse Resp BP BP Pulse Ox 05/13/19 08:45 62 18 140/52 L 100 05/13/19 08:38 97.7 F 63 20 114/44 L 100 05/13/19 07:49 98.2 F 61 16 145/64 H 95 05/13/19 03:00 97.7 F 66 20 123/66 98 05/12/19 23:00 97.5 F L 68 20 122/57 L 97 05/12/19 19:45 97.9 F 70 18 155/55 H 94 05/12/19 16:48 97.9 F 68 20 119/57 L 99 05/12/19 15:19 68 18 130/48 L 96 05/12/19 14:00 100 H 18 134/72 95 05/12/19 12:15 97.9 F 60 20 131/41 L 96 Transfer of Care Handoff Completed per policy Notes Mental Status: alert / awake / arousable and participated in evaluation Patient Amnestic to Procedure: Yes Nausea / Vomiting: adequately controlled Pain: adequately controlled Airway Patency, RR, SpO2: stable & adequate BP & HR: stable & adequate Hydration State: stable & adequate Anesthetic Complications: no major complications apparent and Pt Satisfied with anesthetic care
[2019-05-13] MEDS ORDERED: ASPIRIN 81 MG ECTAB PO SCH (09:09)
[2019-05-13] MEDS ORDERED: NON-FORMULARY MEDICATION (Diphenhydramine-Acetaminophen [Tylenol Pm Extra Strength] 1 TAB) PO PRN (09:09)
[2019-05-13] MEDS ORDERED: ACETAMINOPHEN 500 MG TAB PO PRN (09:24)
[2019-05-13] MEDS: VALSARTAN 80 MG TAB PO SCH (11:09)
[2019-05-13] MEDS: CHOLECALCIFEROL 1,000 UNITS TAB PO SCH (11:10)
[2019-05-13] MEDS: CARVEDILOL 25 MG TAB PO SCH ×2 (11:10→20:08)
[2019-05-13] MEDS: ISOSORBIDE MONO EXTENDED REL 60 MG TABCR PO SCH ×2 (11:10→20:08)
[2019-05-13] MEDS: SUCRALFATE 1 GM/10 ML UDC PO SCH ×4 (11:10→20:07)
[2019-05-13] MEDS: FUROSEMIDE 80 MG TAB PO SCH (11:18)
[2019-05-13] MEDS: POTASSIUM CHLORIDE 20 MEQ TABCR PO SCH (11:18)
[2019-05-13] MEDS: PANTOprazole 40 MG TAB PO SCH ×2 (11:18→20:08)
[2019-05-13] MEDS: ATORVASTATIN 40 MG TAB PO SCH (20:08)
[2019-05-13] MEDS: AMLODIPINE BESYLATE 5 MG TAB PO SCH (20:53)
--- NOTE | 2019-05-13 20:53 | XRay Report ---
XR chest 1V portable HISTORY: Atypical chest pain COMPARISON: Chest 05/12/2019. FINDINGS: The lungs are clear. No pleural effusions. No pneumothorax. The heart remains mildly enlarg ed. Left-sided pacemaker/defibrillator is again noted. No evidence for pulmonary edema. IMPRESSION: Stable cardiomegaly. Electronically signed by: Gwyn Ivey M.D. 05/13/2019 8:51 PM
[2019-05-13 21:03] LABS: BUN Creatinine Ratio 24.2 (10-20); Calcium 7.9 mg/dl (8.5-10.1); Creatinine Clr Calc Pharmacy 38.5 ml/min; Est GFR (African American) 57.1; Est GFR (Non-African American) 49.3; Potassium 3.3 mmol/L (3.5-5.1)
[2019-05-13 21:07] LABS: Troponin I 0.015 ng/ml (0-0.045)
[2019-05-14] MEDS: SODIUM CHLORIDE 0.9% 1000ML 1,000 ML IV SCH ×2 (07:54→23:55)
[2019-05-14] MEDS: ISOSORBIDE MONO EXTENDED REL 60 MG TABCR PO SCH ×2 (07:56→20:19)
[2019-05-14] MEDS: CHOLECALCIFEROL 1,000 UNITS TAB PO SCH (07:56)
[2019-05-14] MEDS: VALSARTAN 80 MG TAB PO SCH (07:57)
[2019-05-14] MEDS: PANTOprazole 40 MG TAB PO SCH ×2 (07:57→20:19)
[2019-05-14] MEDS: CARVEDILOL 25 MG TAB PO SCH ×2 (07:57→20:19)
[2019-05-14] MEDS: SUCRALFATE 1 GM/10 ML UDC PO SCH ×4 (07:58→20:20)
[2019-05-14] MEDS: FUROSEMIDE 80 MG TAB PO SCH ×2 (08:12→12:17)
[2019-05-14] MEDS: POTASSIUM CHLORIDE 20 MEQ TABCR PO SCH (08:56)
--- NOTE | 2019-05-14 09:27 | Progress Note ---
DATE: 05/14/2019 GASTROENTEROLOGY PROGRESS NOTE RACE: . HISTORY OF PRESENT ILLNESS: I had the pleasure of seeing Jose L Gambino today at his bedside. He tolerated a clear liquid breakfast this morning. He states that he has not had any bowel movements since yesterday and states that he is "ready to go home." He did undergo an upper endoscopy yesterday, which was notable for long segment Arvizu esophagus and a large hiatal hernia with multiple Mitchel ulcers. There was also a 1 cm clean-based gastric ulcer in the antrum. He has been on twice daily PPI therapy and Carafate therapy and states that he is feeling better. He denies any headaches, blurred vision, syncope, seizures, loss of consciousness, chest pain, palpitations, shortness of breath, cough, dysuria, hematuria, abdominal pain, nausea, vomiting, hematemesis, melena or hematochezia. He denies any further complaints. PHYSICAL EXAMINATION: Includes: VITAL SIGNS: Temp 36.9, pulse 70, respirations 16, blood pressure 139/62, pulse ox 95% on room air. GENERAL: He is awake. He is cooperative. He is chronic ill appearing but in no acute distress. HEAD: Normocephalic, atraumatic. EYES: Pupils equal, round. Extraocular muscles are intact. SKIN: Noted pallor. CHEST: Clear to auscultation bilaterally. CARDIOVASCULAR SYSTEM: Regular rate and rhythm. ABDOMEN: Soft, nontender, nondistended. Positive bowel sounds. EXTREMITIES: No clubbing, cyanosis, or edema. LABORATORY STUDIES: From this morning include a hemoglobin of 7.8, which is down from yesterday's value of 8.9. His BUN was 31 yesterday, which was down from 61 the previous day. IMPRESSION: An 89-year-old male with acute blood loss anemia and gastric ulcer and Mitchel lesions found on upper endoscopy yesterday. PLAN: The patient did have a clean-based gastric ulcer which has a very small risk of rebleeding, approximately 5% and is on PPI and Carafate therapy. However, he does also have Mitchel lesions, which can bleed unpredictably. His H and H did decrease; however, he had no further bowel movements and his BUN decreased from Wednesday to Wednesday significantly. His hemoglobin drop may simply be due to equilibration. A repeat hemoglobin is scheduled for 11:00 a.m. this morning. I did discuss this with Dr. Christian. If he has a true drop in his H and H under 8, recommendation will be for transfusion and I will defer to Dr. Christian on this, which would also delay his discharge. I will follow his clinical course and make further recommendations as needed. Once again, thanks for allowing me to participate in the care of this patient. If you have any further questions, please do not hesitate in contacting me.
[2019-05-14] MEDS ORDERED: SODIUM CHLORIDE 0.9% 250 ML IV PRN (16:26)
--- NOTE | 2019-05-14 16:32 | Hospitalist Progress Note ---
Date of Service May 14, 2019 Assessment & Plan (1) Upper GI bleed: Protonix infusion. Carafate suspension. Consult gastroenterology performed EGD 05/13, found to have a clean-based ulcer no stigmata of current bleeding, Mitchel lesions associate with hiatal hernia and is present. recommending twice daily PPI, hold aspirin advance diet (2) Acute blood loss anemia: Patient's hemoglobin is been below 82 checks on 728 will transfuse 1 unit packed red blood cells if remains stable by 05/15 he possibly may go home unless he continues to trend downward then will confer with gastroenterology he did have a clean-based ulcer so his chance of rebleeding is low (3) Coronary artery disease: Continue coreg, isosorbide, valsartan and hold aspirin therapy and amlodipine (4) Hypertension: Continue antihypertensive medications except for amlodipine (5) DVT prophylaxis: Avoid heparin or Lovenox. SCDs only at this time Subjective Patient has no complaints or problems obvious source of blood loss he is agreeable to have a transfusion due to low hemoglobin Review of Systems Review of Systems: ROS: well nourished well developed. No double vision blurry vision No problems with speech or swallowing No palpitations, chest pain or pressure No Wheezing or breathing issues No abdominal pain nausea vomiting diarrhea changes in appetite or weight No burning urine urine frequency or changes in color No focal joint pain or muscle pain No skin rashes or oral lesions No unusual bruising or bleeding No focused back pain or numbness or loss of strength No changes in memory or confusion Physical Exam Physical Exam: The patient appeared well nourished and normally developed. Vital signs as documented. Head exam is unremarkable. normocephalic, atraumatic Neck is without jugular venous distension, thyromegaly, or lymphademopathy Lungs are clear to auscultation and percussion. Cardiac exam reveals Rhythm is regular. First and second heart sounds normal. Abdominal exam reveals normal bowel sounds, no masses, no organomegaly Extremities are nonedematous and both pedal pulses are present Neurologic exam is A&Ox3, no focal deficits, strength is equal bilateral Psychologically seems anxious Skin is warm Dry Results & Data Vital Signs (Past 12 Hours) Vital Signs Temp Pulse Pulse Resp BP BP Pulse Ox 05/14/19 15:20 36.4 C L 59 L 21 104/56 L 98 05/14/19 11:24 36.7 C 60 16 131/57 L 95 05/14/19 08:44 70 05/14/19 07:21 36.9 C 72 16 139/62 95 PG Care Time/CCT Total # of Minutes Spent Total Time Spent with Patient: Total time spent is greater than 50% in coordination of care (as documented) at patient's floor/unit and/or counseling patient:
[2019-05-14] MEDS: AMLODIPINE BESYLATE 5 MG TAB PO SCH (20:19)
[2019-05-14] MEDS: ATORVASTATIN 40 MG TAB PO SCH (20:19)
[2019-05-15 07:28] LABS: Hematocrit (blood only) 27.1 % (42-52); Mean Corpuscular Hgb Conc 33.2 g/dL (32-36); Mean Corpuscular Volume 93.1 fL (80-100); Mean Platelet Volume 9.6 fL (7.4-10.4); Nucleated RBC # (auto) 0.03 K/uL (0-0); Nucleated RBC % (auto) 0.5 %; Platelet Count 177 K/uL (130-400); RDW Coefficient of Variation 15.8 % (11.5-14.5); RDW Standard Deviation 53.3 fL (36.4-46.3); Red Blood Count 2.91 M/uL (4.7-6.1); White Blood Count 5.54 K/uL (4.8-10.8)
[2019-05-15 07:57] LABS: BUN Creatinine Ratio 14.6 (10-20); Calcium 8.3 mg/dl (8.5-10.1); Creatinine Clr Calc Pharmacy 50.5 ml/min; Est GFR (African American) 78.9; Est GFR (Non-African American) 68.1; Potassium 3.4 mmol/L (3.5-5.1)
[2019-05-15] MEDS: PANTOprazole 40 MG TAB PO SCH (08:31)
[2019-05-15] MEDS: SUCRALFATE 1 GM/10 ML UDC PO SCH (08:31)
[2019-05-15] MEDS: VALSARTAN 80 MG TAB PO SCH (08:31)
[2019-05-15] MEDS: ISOSORBIDE MONO EXTENDED REL 60 MG TABCR PO SCH (08:32)
[2019-05-15] MEDS: CHOLECALCIFEROL 1,000 UNITS TAB PO SCH (08:32)
[2019-05-15] MEDS: CARVEDILOL 25 MG TAB PO SCH (08:32)
[2019-05-15] MEDS: FUROSEMIDE 80 MG TAB PO SCH (08:32)
[2019-05-15] MEDS: POTASSIUM CHLORIDE 20 MEQ TABCR PO SCH (08:32)
--- NOTE | 2019-05-15 15:16 | Discharge Summary ---
Date of Service May 15, 2019 Admission HPI Per Admitting Provider 89-year-old male who developed several episodes of coffee-ground emesis last evening then noticed melena today. He felt weak and had some diaphoresis today. He denies chest pain. He was brought to the ED for evaluation. He has Hemoccult positive melena indicative of GI bleeding, probably from an upper GI source. Hemoglobin is 10.4. Vital signs are stable. He has been started on a Protonix infusion. He has had recent upper endoscopy by [facility] gastroenterology which revealed a healed gastric ulcer. His aspirin therapy will be placed on hold. Amlodipine will also be placed on hold but his beta- jose will continue due to his underlying coronary artery disease. He is alert and oriented to the time my examination. He denies any abdominal pain. Principal Diagnosis upper GI bleed, clean based gastric ulcer, transfusion of 1 unit packed red blood cells Discharge Exam Constitutional well developed and average body habitus Eyes no conjunctival abnormality and no scleral abnormality Neck normal visual inspection and trachea midline Respiratory normal respiratory effort; no respiratory distress Auscultation: lungs clear to auscultation bilaterally Cardiovascular RRR, no murmur, no edema Gastrointestinal (Abdomen) normal bowel sounds, soft, nontender, no hepatosplenomegaly Musculoskeletal no cyanosis or clubbing, extremities motor strength 5/5 Discharge Data Allergies Allergy/AdvReac Type Severity Reaction Status Date / Time ESHA Inhibitors AdvReac Mild COUGH Verified 05/12/19 14:47 Consultations 05/12/19 13:30 ED Decision to Admit Stat 05/12/19 16:13 Consult Gastroenterology Routine Procedures Performed Operation Date: 05/13/19 08:40 Actual Procedures p Esophagogastroduodenoscopy(Not Applicable) - Devin Thomas Case, DO Hospital Course (1) Upper GI bleed: gastroenterology performed EGD 05/13, found to have a clean-based ulcer no stigmata of current bleeding, Mitchel lesions associate with hiatal hernia and is present. recommending twice daily PPI, hold aspirin for remainder of the week (2) Acute blood loss anemia: Patient's hemoglobin is been below 82 checks on 05/14,transfused 1 unit packed red blood cells (3) Coronary artery disease: Continue coreg, isosorbide, valsartan amldipine, resume asprin may 19, (4) Hypertension: Continue antihypertensive medications as typical home regime Total Time Total Time Spent Total Time Spent (In Minutes): greater than 30 minutes were required to prepare discharge Discharge Plan Discharge Items Patient Disposition: Home - Self-Care Reason For Visit: UPPER GI BLEED Discharge Diagnosis: bleeding from stomach ulcer Discharge Goals: Decrease discomfort, Diagnostic testing and Improve disease control Activity: As commented below Activity Comment: gradually increase activity Non-emergency contact: Primary Care Provider and Charge Entry Call non-emergency contact if: you have any medication questions Follow-up/Referrals: Sukhi Burrell MD [Primary Care Provider] - 05/22/19 11:00 am (Please, follow up at Dr. Burrell's office with his associate, Debbie CHAUHAN, on WednesdayMay 22 at 11:00 am. *If you need to change this appointment, call the office at [phone].) Cheyrle Jones PA-C [Physician Diet Kitchen Cook] - 05/26/19 11:50 am (Please, follow up at [facility] Gastroenterology Office with Cheryle Jones PA-C on WednesdayMay 26 at 11:50 am. *The office is located at [address] [place] [address] in [facility]). If you need to change the appointment, call the office at [phone].) Diet: Regular Addtl Provider Instructions: Eat a healthy diet, plenty of fluids and rest watch your bowel movements for further dark black or maroon stools, if you see this please call your primary care or Dr Black's office follow up with Dr Black resume your aspirin on may 19 Prescriptions: New pantoprazole 40 mg Tablet,Delayed Release (Dr/Ec) 40 mg PO BID Qty: 60 RF: 5 Continued amlodipine 2.5 mg Tablet 2.5 mg PO HS RF: 0 cholecalciferol (vitamin D3) [Vitamin D3] 1,000 unit Tablet 1,000 unit PO QAM RF: 0 isosorbide mononitrate 60 mg Tablet Extended Release 24 Hr 60 mg PO PM RF: 0 nitroglycerin 0.4 mg tablet, sublingual 0.4 mg sublingual Q5M PRN (Reason: chest pain) Qty: 30 RF: 0 diphenhydramine-acetaminophen [Tylenol PM Extra Strength] 25-500 mg Tablet 1 tab PO HS PRN (Reason: Sleep) RF: 0 aspirin 81 mg Tablet,Delayed Release (Dr/Ec) 81 mg PO QAM Qty: 0 RF: 0 atorvastatin 40 mg Tablet 40 mg PO HS RF: 0 carvedilol 25 mg Tablet 25 mg PO BID RF: 0 isosorbide mononitrate 120 mg Tablet Extended Release 24 Hr 120 mg PO QAM RF: 0 furosemide 80 mg Tablet 80 mg PO QAM RF: 0 potassium chloride 20 mEq Tablet Extended Release 20 meq PO QAM RF: 0 valsartan 160 mg Tablet 160 mg PO QAM RF: 0 Stand-Alone Forms: [facility]charge Orders: Discharge Order (Routine); Ordered 05/15/19 Ordered By: Jimbo Christian Admission Data Admit Date/Time: 05/12/19 14:23 Attending Provider: Jimbo Christian Admit Provider: Brayden Garcia Primary Care Provider: Sukhi Burrell Other Providers: Brayden Garcia ; Yonatan Choi ; Claudette Alvarado ; Manda Connor ; Perez Simons ; Ifeanyi Paniagua ; Kaylen Lewis ; Calli Phelps ; Sukhi Rothman ; Hadley Amado ; Genie Garcia ; Claribel Platt ; Becki King ; Iliana Bautista ; Patria Hammer Service: Telemetry Medical Other Interventions: Discharge Summary Assessment (RN) Last Done: 05/15/19 10:27 DC Date/Time DO NOT enter until pt leaves facility: 05/15/19 11:40
== END 2019-05-15 11:40 | disposition home or self-care (01) | DRG 378 ==
LOC: ED 12:07 → 2N 14:23 → SUATTDRO 14:23 → 2N 15:45